=== PATIENT | female | born 1960 | race African-American/Black ===

== ENCOUNTER 2016-11-23 15:26 | Inpatient (IN) ==
--- NOTE | 2016-11-23 15:55 | Emergency Department Note ---
Disposition Clinical Impression: Bilateral lower extremity edema, Anemia, Elevated brain natriuretic peptide ( BNP) level, Tachycardia Metastatic renal cell carcinoma Qualifiers: Laterality: unspecified laterality Qualified Code(s): C64.9 - Malignant neoplasm of unspecified kidney, except renal pelvis Disposition: Admitted As Inpatient Condition: Critical Time of Disposition: 18:57 General Adult HPI - General Chief complaint: ED Extremity Problem,Nontraumatic Stated complaint: DEE, bilateral leg swelling Time Seen by Provider: 11/23/16 15:33 Source: patient Mode of arrival: wheelchair Limitations: no limitations Nursing Notes Reviewed: Yes Vital Signs Reviewed: Yes - History of Present Illness HPI Narrative: Mrs. Gavin, 56-year-old -[place] female, presents from home by POV with chief complaint of bilateral lower extremity swelling. Onset 3 weeks ago and progressing. 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 Finished one round of chemotherapy by [facility]. Last chemotherapy was 3 weeks ago. Next chemotherapy is unknown to patient; early discussion regarding a second round. Patient notes she drinks minimum 1gallon H2O per day. PMH: Hypertension, history of anemia, Renal cell carcinoma. No history of congestive heart failure, CAD, or ACS. Patient was given a prescription for metoprolol. She is not currently on Lasix or any diuretics. PCP: Dr. Corral of the residency clinic. ROS: Positive: Bilateral lower extremity edema. Generalized pain. Negative: Chest pain, palpitations, dyspnea, diaphoresis, nausea, vomiting, abdominal pain, weakness. Pain Scale: 10 - Related Data Home Medications Medication Instructions Recorded Confirmed Alprazolam [Xanax] 2 mg PO TID 11/24/15 11/23/16 Albuterol Sulfate [Proair Hfa] 1 puff IH QID PRN 11/23/16 11/23/16 Guaifenesin [Mucinex] 600 mg PO BID PRN 11/23/16 11/23/16 Loratadine [Claritin] 10 mg PO DAILY 11/23/16 11/23/16 Metoprolol XL (24 HR) Succ [Toprol 25 mg PO DAILY 11/23/16 11/23/16 XL] Oxycodone HCl [Roxicodone 30 MG 30 mg PO Q4-6H PRN 11/23/16 11/23/16 Immed Release] Promethazine Syrup [Phenergan 12.5 - 25 mg PO Q8HR PRN 11/23/16 11/23/16 Syrup] hydroCHLOROthiazide 12.5 mg PO DAILY 11/23/16 11/23/16 [Hydrochlorothiazide] Previous Rx's Medication Instructions Recorded Morphine Sulfate SR (12 HR) [MS 30 mg PO Q8H #90 tablet.er 11/06/16 Contin] Allergies Allergy/AdvReac Type Severity Reaction Status Date / Time hydrocodone AdvReac Nausea Verified 11/23/16 14:11 Hydromorphone [From Dilaudid] AdvReac Nausea Verified 11/23/16 14:11 All systems ED: reviewed and negative except as stated. Past Medical History - Past Medical History Medical history: Reports: cancer, hypertension, renal disease, other Surgical history: Reports: appendectomy, hysterectomy Psychiatric history: Reports: anxiety CAKE MAKER history: Reports: no CAKE MAKER history - Social History Smoking Status: Current every day smoker Smokeless Tobacco Status: No Alcohol use: Reports: none Drug use: Reports: none Physical Exam Vital Signs Reviewed General: Patient is alert, oriented, and in no acute distress. HEENT: No facial asymmetry. Head is normocephalic and atraumatic. PERRLA. Trachea midline. Cardiovascular: Heart regular rate and rhythm without clicks, rubs, gallops. Grade 3/6 systolic murmur at right upper sternal border with radiation to bilateral carotids. No JVD. PMI nondisplaced. Bilateral pitting pedal edema from the distal foot to the mid thigh, 2+ at his most severe. Respiratory: Symmetric chest rise with good respiratory effort. Bilateral breath sounds are clear without wheezing, crackles, or rhonchi. Abdomen: Bowel sounds present normoactive x-4 quadrants. Abdomen is soft, nondistended, and nontender. Neuro: Sensation light touch intact. Psych: Patient's affect is appropriate for situation. - General Limitations: no limitations Course Course Narrative: Mrs. Gavin, 56-year-old -[place] female, presents from home by POV with concerns regarding bilateral lower extremity edema. Patient has a history of renal cell carcinoma with metastasis. Has completed 1 round of chemotherapy and is in discussion with or oncologist regarding a second round. Her edema began 3 weeks ago after her last chemotherapy session and has been progressive. She has no history of CAD/ACS/CHF. I am initially concern regarding possible DVT or PE given patient's malignancy. She does take aspirin every day however is not on any anticoagulants. We will Doppler bilateral lower extremities. With her vital signs, she is currently mildly hypoxic, tachypneic, tachycardic, systolic blood pressure 103. We will place on monitor, large-bore IV, and begin fluid resuscitation. Regarding her pain, she has generalized tenderness; the lightest touch even on her back causes her to wince in pain. Last dose of home dose of home dose metoprolol was yesterday morning Patient's VS unchanged after 1L bolus. Will provide Lasix 40mg bolus. She does feel better on supplemental O2. Discussed the patient the the [employer] for the admitting hospitalist who agrees to accept the patient and has no additional questions at this time. Impression: Bilateral lower extremity edema, anemia, elevated BNP. Vital Signs Temperature 99.2 F 11/23/16 15:28 Pulse Rate 114 11/23/16 15:28 Respiratory Rate 20 11/23/16 15:28 Blood Pressure 103/70 11/23/16 15:28 O2 Sat by Pulse Oximetry 94 11/23/16 15:28 Temperature 99.1 F 11/23/16 19:13 Pulse Rate 106 11/23/16 19:13 Respiratory Rate 16 11/23/16 19:13 Blood Pressure 99/65 11/23/16 19:13 O2 Sat by Pulse Oximetry 90 11/23/16 19:13 Oxygen Delivery Oxygen Delivery Nasal Cannula Medical Decision Making - Medical Records Medical records reviewed: Yes I reviewed the patient's medical records. - Lab Data Lab results reviewed: Yes I reviewed the patient's lab results. Result diagrams: 11/23/16 16:10 11/23/16 16:10 Lab Results 11/23/16 11/23/16 11/23/16 Range/Units 16:10 16:10 16:10 WBC 9.8 (4.3-11.1) K/mcL RBC 4.41 (3.82-4.97) M/mcL Hgb 8.0 L (11.5-15.4) g/dL Hct 28.7 L (35.3-44.9) % MCV 65.1 L (83.0-100.0) fL MCH 18.1 L (28.0-33.3) pg MCHC 27.9 L (31.6-35.5) g/dL RDW 23.9 H (11.5-14.5) % Plt Count 500 H (140-400) K/mcL MPV 8.8 L (9.4-12.4) fL Immature Gran % 1.1 (0-4) % Seg Neutrophils % 75.9 % Lymphocytes % 5.3 % Monocytes % 14.9 % Eosinophils % 2.3 % Basophils % 0.5 % Neutrophils # 7.4 (1.6-8.9) K/mcL Lymphocytes # 0.5 L (0.6-4.6) K/mcL Monocytes # 1.5 H (0.0-1.3) K/mcL Eosinophils # 0.2 (0.0-0.6) K/mcL Basophils # 0.1 (0.0-0.2) K/mcL Nucleated RBCs/100 WBC 0.4 H (0) /100 WBC Platelet Estimate Increased H (Normal) Immature Plt Fraction 2.9 (1.1-6.1) % Hypochromasia Present A (Not Present) Anisocytosis 3+ A (Not Present) Microcytosis Present A (Not Present) Sodium 132 L (136-145) mEq/L Potassium 4.5 (3.5-4.5) mEq/L Chloride 97 L (98-109) mEq/L Carbon Dioxide 26 (19-29) mEq/L BUN 12 (7-20) mg/dL Creatinine 0.81 (0.57-1.11) mg/dL Est GFR ( Amer) > 60 (> 60) Est GFR (Non-Af Amer) > 60 (> 60) BUN/Creatinine Ratio 15 (6-26) Glucose 108 H (70-99) mg/dL Calculated Osmolality 274 L (280-300) Calcium 9.1 (8.6-10.8) mg/dL Total Bilirubin 3.1 H (0.2-1.2) mg/dL AST 29 (5-34) Units/L ALT 9 (0-55) Units/L Alkaline Phosphatase 247 H (38-126) Units/L Troponin I (0-0.03) ng/mL B-Natriuretic Peptide 1022 H (0-100) pg/mL Serum Total Protein 6.7 (6.0-8.3) g/dL Albumin 1.8 L (3.5-5.0) g/dL Globulin 4.9 H (2.4-3.5) g/dL Albumin/Globulin Ratio 0.4 L (1.1-2.2) Blood Type Antibody Screen 11/23/16 11/23/16 Range/Units 16:10 17:44 WBC (4.3-11.1) K/mcL RBC (3.82-4.97) M/mcL Hgb (11.5-15.4) g/dL Hct (35.3-44.9) % MCV (83.0-100.0) fL MCH (28.0-33.3) pg MCHC (31.6-35.5) g/dL RDW (11.5-14.5) % Plt Count (140-400) K/mcL MPV (9.4-12.4) fL Immature Gran % (0-4) % Seg Neutrophils % % Lymphocytes % % Monocytes % % Eosinophils % % Basophils % % Neutrophils # (1.6-8.9) K/mcL Lymphocytes # (0.6-4.6) K/mcL Monocytes # (0.0-1.3) K/mcL Eosinophils # (0.0-0.6) K/mcL Basophils # (0.0-0.2) K/mcL Nucleated RBCs/100 WBC (0) /100 WBC Platelet Estimate (Normal) Immature Plt Fraction (1.1-6.1) % Hypochromasia (Not Present) Anisocytosis (Not Present) Microcytosis (Not Present) Sodium (136-145) mEq/L Potassium (3.5-4.5) mEq/L Chloride (98-109) mEq/L Carbon Dioxide (19-29) mEq/L BUN (7-20) mg/dL Creatinine (0.57-1.11) mg/dL Est GFR ( Amer) (> 60) Est GFR (Non-Af Amer) (> 60) BUN/Creatinine Ratio (6-26) Glucose (70-99) mg/dL Calculated Osmolality (280-300) Calcium (8.6-10.8) mg/dL Total Bilirubin (0.2-1.2) mg/dL AST (5-34) Units/L ALT (0-55) Units/L Alkaline Phosphatase (38-126) Units/L Troponin I 0.01 (0-0.03) ng/mL B-Natriuretic Peptide (0-100) pg/mL Serum Total Protein (6.0-8.3) g/dL Albumin (3.5-5.0) g/dL Globulin (2.4-3.5) g/dL Albumin/Globulin Ratio (1.1-2.2) Blood Type B POSITIVE Antibody Screen NEGATIVE - Radiology Data Radiology results reviewed: Yes I reviewed the patient's radiology results. - EKG Data EKG #1 EKG results narrative: EKG is interpreted by myself without benefit of for cardiology dictation showing a sinus tachycardia at 109 bpm with old inferior changes. Stool is compared to an EKG from 10/25/2016 shows no significant change today compared to previous. Attestation Statement - Attestation Attestation: I personally interviewed and examined this patient and my medical decision- making was reviewed with the ED Resident Physician, Dr. Corona. I agree with the documented findings, disposition and treatment plan as described except to the extent set forth below. Patient is a 56-year-old black female who presents to the emergency department today brought by her sister with concerns for 3 week history of gradually worsening bilateral lower extremity edema and pain. Patient has a history of renal cell carcinoma which was diagnosed earlier this year and resulted in her having surgery at [facility] as the tumor had wrapped around her spine. She is currently being managed by the residency clinic for primary care as well as the [facility] for cancer management. She has completed one round of chemotherapy and they are considering initiating a second round. Patient is currently not undergoing any chemotherapy treatments. Patient denies any fevers or chills, no shortness of breath associated with this lower extremity edema. She denies any prior cardiac history or CHF. Patient states that she has been calling the clinic multiple times and has been prescribed metoprolol as recently as today to start on but has not been prescribed any Lasix or diuretics. Patient is in no acute distress although she has abnormal vital signs on arrival showing a tachycardia to sinus rhythm as well as mild hypotension. Patient denies any chest pain pressure or heaviness no abdominal pain, no nausea vomiting, no back or flank discomfort or urinary symptoms. Patient denies any recent sore throat cough or cold symptoms. She is in no acute distress on my initial assessment with no signs of respiratory distress. On physical exam patient's heart is tachycardic but regular, abdomen is soft nontender nondistended positive bowel sounds she has a well-healed surgical scar overlying the right anterolateral abdomen from prior surgery. Patient's lower extremity exam shows bilateral 3+ pitting edema to the knees but no overlying erythema. Legs are generally tender to palpation. She is neurovascularly intact in both lower extremities. Remainder of exam is unremarkable. At this time based on her vitals were to go ahead and given initial fluid bolus and obtained portal chest x-ray and lab evaluation. I went ahead since this is such a recent change for her and ordered bilateral venous Dopplers to further evaluate this edema and pain. He will that she is at risk for DVT or PE in regards to her cancer history. At this time she is not complaining of any chest pain no shortness of breath no pulmonary or cardiac symptoms. We will closely monitor her hemodynamic status and make adjustments as needed.
[2016-11-23] MEDS ORDERED: 0.9 % Sodium Chloride 1,000 ML IVC ONE (15:56)
[2016-11-23 16:23] LABS: Basophils # 0.1 K/mcL (0.0-0.2); Basophils % 0.5 %; Eosinophils # 0.2 K/mcL (0.0-0.6); Eosinophils % 2.3 %; Hematocrit 28.7 % (35.3-44.9); Immature Granulocytes % 1.1 % (0-4); Immature Platelets 2.9 % (1.1-6.1); Lymphocytes # 0.5 K/mcL (0.6-4.6); Lymphocytes % 5.3 %; Mean Corpuscular HGB Conc 27.9 g/dL (31.6-35.5); Mean Corpuscular Hemoglobin 18.1 pg (28.0-33.3); Mean Corpuscular Volume 65.1 fL (83.0-100.0); Mean Platelet Volume 8.8 fL (9.4-12.4); Monocytes # 1.5 K/mcL (0.0-1.3); Monocytes % 14.9 %; Neutrophils # 7.4 K/mcL (1.6-8.9); Nucleated Red Blood Cells 0.4 /100 WBC (0); Platelet Count 500 K/mcL (140-400); Red Blood Count 4.41 M/mcL (3.82-4.97); Red Cell Distribution Width 23.9 % (11.5-14.5); Segmented Neutrophils % 75.9 %
[2016-11-23 16:35] LABS: Alanine Aminotransferase 9 Units/L (0-55); Albumin 1.8 g/dL (3.5-5.0); Albumin/Globulin Ratio 0.4 (1.1-2.2); Alkaline Phosphatase 247 Units/L (38-126); Aspartate Amino Transferase 29 Units/L (5-34); BUN/Creatinine Ratio 15 (6-26); Bilirubin,Total 3.1 mg/dL (0.2-1.2); Blood Urea Nitrogen 12 mg/dL (7-20); Calcium 9.1 mg/dL (8.6-10.8); Carbon Dioxide 26 mEq/L (19-29); Chloride 97 mEq/L (98-109); Globulin 4.9 g/dL (2.4-3.5); Glucose 108 mg/dL (70-99); Osmolality,Calculated 274 (280-300); Potassium 4.5 mEq/L (3.5-4.5); Sodium 132 mEq/L (136-145); Total Protein 6.7 g/dL (6.0-8.3); eGFR For African Americans > 60 (> 60); eGFR For Non-African Americans > 60 (> 60)
[2016-11-23 16:39] LABS: Anisocytosis 3+ (Not Present); Hypochromasia Present (Not Present); Microcytosis Present (Not Present); Platelet Estimate Increased (Normal)
[2016-11-23] MEDS ORDERED: Furosemide 40 MG/4 ML VIAL IVP ONE (17:21)
[2016-11-23] MEDS ORDERED: Naloxone 0.4 MG/ML INJ IVP PRN ×2 (18:12→18:25)
[2016-11-23] MEDS ORDERED: Acetaminophen 325 MG TABLET PO PRN (18:25)
[2016-11-23] MEDS ORDERED: Ondansetron 4 MG/2 ML VIAL IVP PRN (18:25)
[2016-11-23] MEDS ORDERED: *HR* Morphine Sulfate SR (12 HR) 30 MG TABLET.ER PO SCH (18:30)
--- NOTE | 2016-11-23 18:40 | Internal Med History&Physical ---
<Laneynahiddee deeChivo Duarte - Last Filed: 11/23/16 19:22> Date of Encounter: 11/23/16 Time of Encounter: 18:00 Assessment and Plan (1) Tachycardia Current visit: Yes Status: Acute Assess: Patient presents with acute tachycardia most likely related to SOB and current diagnosis of metastatic renal cell carcinoma. Patient has no history of congestive heart, CAD, or ACS. Troponin is 0.01 on first blood draw. Plan: Trend troponins x2 Continuous cardiac telemetry ordered EV Echocardiogram ordered CT of chest ordered Monitor patient and vital signs (2) Lower extremity edema Current visit: Yes Status: Acute Assess: Ms. Gavin is a 56 year old female presents from the ED with chief complaint of bilateral lower extremity swelling and difficulty breathing. Patient reports this began 3 weeks ago, coinciding with finishing a round of chemotherapy [facility]. Patient reports cough with sputum production has become progressively worse. Plan: Lasix 40 mg given in ED. Patient to receive one more 40 mg IVP dose today at 21: 00, then 40 mg IVP BID starting tomorrow (11/24/16) Monitor I&O Monitor daily weight Qualifiers: Laterality: bilateral Qualified Code(s): R60.0 - Localized edema (3) Generalized pain Current visit: Yes Status: Acute Assess: Patient presents with acute generalized pain related to recurrent renal cell carcinoma with metastasis to spine and brain and current chest congestion resulting in SOB. Plan: Continue patient's oxycodone 30 mg Q8 for moderate pain Continue patient's morphine 30 mg Q8 for severe pain Monitor patient and vital signs Monitor patient for pain Falls precautions/bed rest with bedside commode/[id number] status due to weakness/generalized pain (4) SOB (shortness of breath) Current visit: Yes Status: Acute Assess: Patient presents with acute shortness of breath related to current metastatic cancer and cough with excess sputum production. Plan: Supplemental O2 ordered with titration if SpO2 <92% Continuous SpO2 monitoring Sputum culture ordered Ceftriaxone 1,000 mg IVPB daily ordered for infection coverage D-dimer ordered Lactic acid ordered CT of chest ordered DuoNebs ordered Q4 Monitor patient and vital signs (5) Metastatic renal cell carcinoma Current visit: Yes Status: Chronic Assess: Patient presents with renal cell carcinoma with metastasis to spine and brain. Plan: Continue patient's oxycodone 30 mg Q8 for moderate pain Continue patient's morphine 30 mg Q8 for severe pain Monitor patient and vital signs Monitor patient for pain Falls precautions/bed rest with bedside commode/[id number]-[id number] status due to weakness/generalized pain Qualifiers: Laterality: unspecified laterality Qualified Code(s): C64.9 - Malignant neoplasm of unspecified kidney, except renal pelvis (6) DVT prophylaxis Current visit: Yes Status: Acute Assess: Replacement DVT prophylaxis to inpatient protocol and bedrest status. Plan: Heparain 5,000 units SQ Q8 HR ordered Internal Medicine - H&P: HPI Chief complaint: SOB/Bilateral edema of lower extremities Admitted From: Emergency Dept Plans for Post Hospital Care: Home History of present illness: Ms. Gavin is a 56 year old female presents from the ED with chief complaint of bilateral lower extremity swelling and difficulty breathing. Patient reports this began 3 weeks ago, coinciding with finishing a round of chemotherapy [facility]. Patient reports cough with sputum production has become progressively worse. Patient denies chest pain but is currently tachycardic. Patient has no history of CHF, CAD, or ACS. Ms. Gavin denies chest pain, palpitations, diaphoresis, nausea, vomiting, abdominal pain, generalized weakness, or recent illness. Patient has history of hypertension, renal disease , and renal cell carcinoma with metastasis to spine and brain. Patient also denies any current pain. Patient is high risk due to current immunocompromised status related to recent chemotherapy, risk for infection, and symptomatic tachycardia. Patient is to be placed on continuous cardiac telemetry, supplemental O2 with titration, IV ceftriaxone 1,000 mg daily for infection coverage, fluid restriction diet of 1500 due to lower extremity edema, 40 mg BID Lasix, and trending troponins x2. Blood and sputum cultures ordered. Patient is falls precautions/bed rest with bedside commode/wv-[id number] status due to current weakness/SOB. Patient to be monitored closely. Past Med Surg Social Fam HX - Past Medical History Source: patient Medical history: cancer, hypertension, renal disease, other Psychiatric history: anxiety - Past Surgical History Surgical History: appendectomy, hysterectomy - Social History Smoking Status: Current every day smoker Smokeless Tobacco Status: No Alcohol use: none Drug use: none Occupational status: unemployed Current living situation: Home Activity Level: Independent ambulation Recent Out of Country Travel Within the Last 8 Weeks: No Exposure or Possible Exposure to Illness During Travel: No - Family History Mother Race: Family Member Ethnicity: Non- Living Status: Age at : 77 Hx Family Endocrine Disorder: Yes (DM) Brother Race: Family Member Ethnicity: Non- Living Status: Cause of : Lung cancer Hx Family Cancer: Yes (Lung) Internal Medicine - H&P: Meds Alprazolam [Xanax] 2 mg PO TID 11/24/15 [History] Morphine Sulfate SR (12 HR) [MS Contin] 30 mg PO Q8H #90 tablet.er 11/06/16 [Rx] Albuterol Sulfate [Proair Hfa] 1 puff IH QID PRN 11/23/16 [History] Guaifenesin [Mucinex] 600 mg PO BID PRN 11/23/16 [History] Loratadine [Claritin] 10 mg PO DAILY 11/23/16 [History] Metoprolol XL (24 HR) Succ [Toprol XL] 25 mg PO DAILY 11/23/16 [History] Oxycodone HCl [Roxicodone 30 MG Immed Release] 30 mg PO Q4-6H PRN 11/23/16 [ History] Promethazine Syrup [Phenergan Syrup] 12.5 - 25 mg PO Q8HR PRN 11/23/16 [History] hydroCHLOROthiazide [Hydrochlorothiazide] 12.5 mg PO DAILY 11/23/16 [History] Allergies hydrocodone Adverse Reaction (Verified 11/23/16 14:11) Nausea Hydromorphone [From Dilaudid] Adverse Reaction (Verified 11/23/16 14:11) Nausea All Systems PM: A 10-system review of systems was performed and is negative for pertinent findings except as documented above in the HPI. - Constitutional Constitutional: as per HPI, weakness, other (SOB) - EENT Eyes: no change in vision, no discharge, no pain, no photophobia Ears: no ear discharge, no ear pain, no tinnitus Nose, mouth and throat: no dysphagia, no nasal discharge, no neck pain, no sore throat - Breasts Breasts: as per HPI - Cardiovascular Cardiovascular ROS IM: as per HPI, other (Tachycardia) - Respiratory Respiratory: as per HPI, cough, wheezing, chest congestion, excessive phlegm production - Gastrointestinal Gastrointestinal: no abdominal pain, no diarrhea, no hematemesis, no hematochezia, no melena, no nausea, no vomiting - Genitourinary Genitourinary: no change in urinary stream, no dysuria, no flank pain, no hematuria Menstruation: as per HPI - Musculoskeletal Musculoskeletal ROS IM: no numbness, no tingling - Integumentary Integumentary IM: no rash, no unusual bruising - Neurological Neurological ROS: no confusion, no convulsions, no focal weakness, no numbness, no tingling, no tremor(s) - Psychiatric Psychiatric: as per HPI - Endocrine Endocrine IM: as per HPI - Hematologic/Lymphatic Hematologic/Lymphatic: no easy bruising - Allergic/Immunologic Allergic/Immunologic: as per HPI - Constitutional Vitals: Temp Pulse Resp BP Pulse Ox 99.2 F 114 20 103/70 94 11/23/16 15:28 11/23/16 15:28 11/23/16 15:28 11/23/16 15:28 11/23/16 15:28 General appearance: Present: cooperative, mild distress, A&O X 3, pleasant, answers questions appropriately - Head Head exam: Present: atraumatic, normocephalic - Eye Eye exam: Present: PERRL, conjuntiva pink, sclera anicteric Pupils: Present: PERRL - ENT ENT exam: Present: normal exam, normal external ear exam - Neck Neck exam general surgery: Present: supple, trachea midline. Absent: lymphadenopathy - Respiratory Respiratory exam: Present: decreased breath sounds, rhonchi, wheezes. Absent: accessory muscle use, rales - Cardiovascular Cardiovascular exam: Present: tachycardia - GI/Abdominal GI/Abdominal exam: Present: normal bowel sounds, soft, no peritoneal signs. Absent: distended, tenderness - Rectal Rectal exam: Present: deferred - Additional comments: exam deferred. - Extremities Exam Extremities exam: Present: pedal edema, warm, radial pulses palpable and symetrical. Absent: calf tenderness, cyanotic - Back Exam Back exam: Present: normal inspection - Neurological Exam Neurological exam: Present: CN II-XII intact, oriented X3, no focal deficits. Absent: pronater drift, facial droop, speech deficit - Psychiatric Psychiatric exam: Present: normal affect, normal mood - Skin Skin exam: Present: dry, intact Internal Med - H&P Results - Labs CBC & Chem 7: 11/23/16 16:10 11/23/16 16:10 - EKG Data EKG shows normal: sinus rhythm Rate: tachycardia - EKG Data Prior EKG available for review: yes EKG comments: 11/23/16 18:59 EKG dated 10/25/16 shows sinus rhythm with inferior myocardial infarction. EKG dated 11/23/16 shows sinus tachycardia with short SC interval, possible inferior myocardial infarction [30 ms Q wave in II/aVF] of indeterminate age. - Diagnostic Studies Chest x-ray Additional comments: Impressions Chest X-Ray 11/23/16 16:03 IMPRESSION: Findings are consistent with progression of metastatic disease. Diffuse, bilateral interstitial opacities may reflect interstitial edema. D/ / 11/23/2016 17:12:19 Red Solis MD / devi Interpreting Provider: Red Solis MD <Sujata King - Last Filed: 11/23/16 20:17> Date of Encounter: 11/23/16 Internal Medicine - H&P: HPI History of present illness: Ms. Gavin is a 56 year old female All Systems PM: A 10-system review of systems was performed and is negative for pertinent findings except as documented above in the HPI. - Constitutional Vitals: Temp Pulse Resp BP Pulse Ox 99.1 F 106 16 99/65 90 11/23/16 19:13 11/23/16 19:13 11/23/16 19:13 11/23/16 19:13 11/23/16 19:13 Internal Med - H&P Results - Labs CBC & Chem 7: 11/23/16 16:10 11/23/16 16:10 - Attending Attestation I examined and reviewed laboratory, imaging and all diagnostic data. My medical decision-making was reviewed with Chivo Meza - CHARLIE. I agree with the documented findings, disposition and treatment plan as described above. History and exam by me shows: . productive cough, SOB and LE swelling in a patient with metastatic renal cell carcinoma with mets to lungs and on chemotherapy with Nivolumab. Very thin patient with icteric sclera, decreased breath sounds bibasal, crackles in lower lung cain, 2+ LE edema, and on 3L NC (not on oxygen at home). CXR reviewed by me, progression of metastatic cancer and interstitial edema. alb 1.8. WBC 9.8. a/p 1. acute respiratory failure secondary to progression of metastatic disease +/- PNA in an immunocompromised pt +/- acute heart failure. IV lasix. duonebs. IV ceftriaxone. cultures taken. fluid restriction. strict I/O. check echo and CT chest. consider palliative consultation. 2. elevated LFTs. CTAP in October 2016 reviewed, showed ascites. monitor LFTs. Us abdomen ordered.
[2016-11-23] MEDS ORDERED: Furosemide 40 MG/4 ML VIAL IVP SCH (18:45)
[2016-11-23] MEDS ORDERED: *HR* Morphine Sulfate SR (12 HR) 30 MG TABLET.ER PO STA (19:21)
[2016-11-23] MEDS ORDERED: Ipratropium/Albuterol Neb 3 ML IH PRN (20:18)
[2016-11-23] MEDS: ALPRAZolam 1 MG TABLET PO SCH (20:54)
[2016-11-23] MEDS: Furosemide 40 MG/4 ML VIAL IVP SCH (20:54)
[2016-11-23] MEDS: *HR* Heparin 5,000 UNIT/ML VIAL SQ SCH (20:56)
[2016-11-24 02:57] LABS: Basophils % 0.4 %; Immature Granulocytes % 0.9 % (0-4); Monocytes % 14.7 %
[2016-11-24 02:58] LABS: Eosinophils # 0.2 K/mcL (0.0-0.6); Eosinophils % 2.4 %; Hematocrit 27.3 % (35.3-44.9); Hemoglobin 7.5 g/dL (11.5-15.4); Lymphocytes # 0.7 K/mcL (0.6-4.6); Lymphocytes % 6.5 %; Mean Corpuscular HGB Conc 27.5 g/dL (31.6-35.5); Mean Corpuscular Hemoglobin 18.1 pg (28.0-33.3); Mean Corpuscular Volume 65.9 fL (83.0-100.0); Mean Platelet Volume 9.3 fL (9.4-12.4); Monocytes # 1.5 K/mcL (0.0-1.3); Neutrophils # 7.5 K/mcL (1.6-8.9); Nucleated Red Blood Cells 0.3 /100 WBC (0); Platelet Count 405 K/mcL (140-400); Red Blood Count 4.14 M/mcL (3.82-4.97); Red Cell Distribution Width 23.9 % (11.5-14.5); Segmented Neutrophils % 75.1 %
[2016-11-24 03:06] LABS: INR 1.6; Prothrombin Time 17.6 Seconds (9.4-12.1)
[2016-11-24 03:09] LABS: Activated Partial Thrombo Time 27.4 Seconds (26.0-36.0)
[2016-11-24 03:13] LABS: Alanine Aminotransferase 6 Units/L (0-55); Albumin/Globulin Ratio 0.3 (1.1-2.2); Alkaline Phosphatase 212 Units/L (38-126); Aspartate Amino Transferase 18 Units/L (5-34); BUN/Creatinine Ratio 14 (6-26); Bilirubin,Direct 2.3 mg/dL (0.0-0.5); Bilirubin,Indirect 0.6 mg/dL (0.0-1.2); Bilirubin,Total 2.9 mg/dL (0.2-1.2); Blood Urea Nitrogen 12 mg/dL (7-20); Calcium 8.5 mg/dL (8.6-10.8); Carbon Dioxide 27 mEq/L (19-29); Chloride 98 mEq/L (98-109); Chol/HDL Ratio 11.7 (0-4.9); Cholesterol 105 mg/dL (< 200); Globulin 4.3 g/dL (2.4-3.5); Glucose 133 mg/dL (70-99); HDL Cholesterol 9 mg/dL (40-59); LDL Cholesterol,Calculated 74 mg/dL (0-99); Magnesium 1.3 mg/dL (1.6-2.6); Osmolality,Calculated 280 (280-300); Phosphorous 3.9 mg/dL (2.3-4.7); Potassium 3.9 mEq/L (3.5-4.5); Total Protein 5.8 g/dL (6.0-8.3); Triglycerides 111 mg/dL (< 150); eGFR For African Americans > 60 (> 60); eGFR For Non-African Americans > 60 (> 60)
[2016-11-24 03:18] LABS: Albumin 1.5 g/dL (3.5-5.0); Sodium 134 mEq/L (136-145)
[2016-11-24 03:25] LABS: Anisocytosis 2+ (Not Present); Hypochromasia Present (Not Present); Microcytosis Present (Not Present); Poikilocytosis 1+ (Not Present); Target Cells 1+ (Not Present)
[2016-11-24] MEDS: *HR* Heparin 5,000 UNIT/ML VIAL SQ SCH ×3 (05:37→23:34)
[2016-11-24] MEDS: *HR* Morphine Sulfate SR (12 HR) 30 MG TABLET.ER PO SCH ×2 (05:37→07:24)
[2016-11-24] MEDS: Pantoprazole 40 MG VIAL IVP SCH (05:37)
[2016-11-24] MEDS ORDERED: Azithromycin 500 MG in D5% in Water 250 ML IVPB SCH (08:00)
[2016-11-24] MEDS: ALPRAZolam 1 MG TABLET PO SCH (09:43)
[2016-11-24] MEDS ORDERED: Furosemide 40 MG/4 ML VIAL IVP SCH (09:44)
[2016-11-24] MEDS ORDERED: *HR* Morphine Sulfate SR (12 HR) 30 MG TABLET.ER PO PRN (09:45)
[2016-11-24] MEDS ORDERED: ALPRAZolam 1 MG TABLET PO PRN (09:46)
[2016-11-24] MEDS: Furosemide 40 MG/4 ML VIAL IVP SCH ×3 (09:56→17:25)
[2016-11-24] MEDS: Loratadine 10 MG TABLET PO SCH (09:57)
--- NOTE | 2016-11-24 13:15 | Venous Imaging Report ---
LE Venous Duplex Patient Name:Elen Gavin Order Number:[id number] Procedure Date:11/23/2016 Date:2Age:56 yrs Gender:Female Location:[facility] ED Room #: ER27 Temperature Regulator:Sharon White RDCS Referring MD:Jia Smith DO analytical lab analyst:None Reading MD:Isaak Coates MD Primary Indications:Edema Secondary Indications: Risk Factors Yes/No Hx of Chemotherapy Yes Impressions: Normal bilateral lower extremity deep and superficial venous exam. Recommendations: Preliminary given to Dr Smith in ED. Findings Venous Duplex Results: Right: Venous imaging of the lower extremity reveals full patency and normal vessel compressibility of the right distal iliac, right common femoral, right superficial femoral, right popliteal, right posterior tibial, right peroneal, right great saphenous and right lesser saphenous. Doppler signals in the evaluated veins were normal. Left: Venous imaging of the lower extremity reveals full patency and normal vessel compressibility of the left distal iliac, left common femoral, left superficial femoral, left popliteal, left posterior tibial, left peroneal, left great saphenous and left lesser saphenous. Doppler signals in the evaluated veins were normal. Prior Study: No prior study available for comparison. Lower Extremity Venous Duplex Side Vein Compress Spontaneous Flow Augment Diameter (cm) Depth (cm) Right Distal Iliac Normal Yes Phasic Yes Right Common Femoral Normal Yes Phasic Yes Right Superficial Femoral Normal Yes Phasic Yes Right Popliteal Normal Yes Phasic Yes Right Posterior Tibial Normal Yes Phasic Yes Right Peroneal Normal Yes Phasic Yes Right Great Saphenous Normal Yes Phasic Yes Right Lesser Saphenous Normal Yes Phasic Yes Left Distal Iliac Normal Yes Phasic Yes Left Common Femoral Normal Yes Phasic Yes Left Superficial Femoral Normal Yes Phasic Yes Left Popliteal Normal Yes Phasic Yes Left Posterior Tibial Normal Yes Phasic Yes Left Peroneal Normal Yes Phasic Yes Left Great Saphenous Normal Yes Phasic Yes Left Lesser Saphenous Normal Yes Phasic Yes Updated by Isaak Coates MD on 11/24/2016 12:59:49 PM electronically signed on 11/24/2016 1:10:08 PM with status of Final
--- NOTE | 2016-11-24 13:39 | Internal Med Progress Note ---
Date of Encounter: 11/24/16 Time of Encounter: 09:00 - Assessment and plan (1) Acute respiratory failure with hypoxia Current Visit: Yes Status: Acute Assessment and plan: Likely from pulmonary edema and lung metastasis from renal cell carcinoma. Continue O2 supplementation. Patient was started on IV antibiotics for possible underlying pneumonia. CT scan of the chest does not show any definitive pneumonia. Patient does have interstitial edema. We will discontinue IV antibiotics. Treat underlying conditions. Moderate risk for complications. (2) Anemia Current Visit: Yes Status: Acute Assessment and plan: Acute on chronic anemia with hemoglobin of 7.5 today. Likely related to cancer , chemotherapy and chronic disease. Will check iron, folic acid and B12 levels. Qualifiers: Anemia type: other cause Other causes of anemia: chronic disease, other Qualified Code(s): D63.8 - Anemia in other chronic diseases classified elsewhere (3) Bilateral lower extremity edema Current Visit: Yes Status: Acute Assessment and plan: Started on treatment for this with Lasix. Patient may have underlying heart failure. We will follow results of 2-D echocardiogram. 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 Qualifiers: Laterality: unspecified laterality Qualified Code(s): C64.9 - Malignant neoplasm of unspecified kidney, except renal pelvis (6) Tachycardia Current Visit: Yes Status: Acute Assessment and plan: Check thyroid profile. Patient is in sinus tachycardia. This could be due to anemia and hypoxia. No signs of sepsis. - Constitutional Vitals: Temp Pulse Resp BP Pulse Ox 98.6 F 110 14 102/65 100 11/24/16 11:16 11/24/16 11:16 11/24/16 11:16 11/24/16 11:16 11/24/16 11:16 General appearance: Present: cooperative, mild distress, A&O X 3, pleasant, answers questions appropriately Internal Medicine: Result - Labs CBC & Chem 7: 11/24/16 02:07 11/24/16 02:07 Labs: Short CBC 11/24/16 Range/Units 02:07 WBC 10.0 (4.3-11.1) K/mcL Hgb 7.5 L (11.5-15.4) g/dL Hct 27.3 L (35.3-44.9) % Plt Count 405 H (140-400) K/mcL Neutrophils # 7.5 (1.6-8.9) K/mcL BMP 11/24/16 02:07 Sodium 134 L Potassium 3.9 Chloride 98 Carbon Dioxide 27 BUN 12 Creatinine 0.83 Glucose 133 H Calcium 8.5 L Cardiac Enzymes 11/24/16 Range/Units 02:07 Troponin I 0.02 (0-0.03) ng/mL Liver Function 11/24/16 Range/Units 02:07 Total Bilirubin 2.9 H (0.2-1.2) mg/dL Direct Bilirubin 2.3 H (0.0-0.5) mg/dL AST 18 (5-34) Units/L ALT 6 (0-55) Units/L Alkaline Phosphatase 212 H (38-126) Units/L Albumin 1.5 L (3.5-5.0) g/dL - ABG Interpretation ABG results: PT/INR, D-dimer PT 17.6 Seconds (9.4-12.1) H 11/24/16 02:07 D-Dimer 5839 ng/mLFEU (0-500) H 11/23/16 19:41 - Impressions Impressions Abdomen Ultrasound 11/24/16 08:45 IMPRESSION: Mild diffuse wall thickening the gallbladder and small amount of pericholecystic fluid. No gallstones. Gallbladder wall thickening is nonspecific and can be seen with acute and/or chronic inflammation, hepatitis, and heart failure D/ / Shannan Dawson Cha, MD / Shannan Dawson Cha, MD Interpreting Provider: Shannan Dawson Cha, MD Consult Discharge Plan - Plan Referrals: Harlan Epperson DO [Primary Care Provider] - - Attending Attestation This document has been at least partially created by [facility] recognition technology by Dr. Cassidy. Errors in grammar, wording or other phrases may exist. If errors are found after the documentation is signed, they will be addressed individually in the addendum section of this document when appropriate.
[2016-11-25 04:49] LABS: Basophils % 0.5 %; Hemoglobin 7.4 g/dL (11.5-15.4); Nucleated Red Blood Cells 0.4 /100 WBC (0); Red Cell Distribution Width 23.9 % (11.5-14.5)
[2016-11-25 04:53] LABS: Basophils # 0.1 K/mcL (0.0-0.2); Eosinophils # 0.2 K/mcL (0.0-0.6); Eosinophils % 2.1 %; Hematocrit 27.4 % (35.3-44.9); Immature Granulocytes % 1.2 % (0-4); Lymphocytes # 0.8 K/mcL (0.6-4.6); Lymphocytes % 6.9 %; Mean Corpuscular Hemoglobin 17.5 pg (28.0-33.3); Mean Corpuscular Volume 64.8 fL (83.0-100.0); Mean Platelet Volume 9.1 fL (9.4-12.4); Monocytes # 1.5 K/mcL (0.0-1.3); Monocytes % 13.5 %; Neutrophils # 8.6 K/mcL (1.6-8.9); Platelet Count 407 K/mcL (140-400); Red Blood Count 4.23 M/mcL (3.82-4.97); Segmented Neutrophils % 75.8 %
[2016-11-25 05:06] LABS: % Iron Saturation 10 % (15-50); BUN/Creatinine Ratio 16 (6-26); Blood Urea Nitrogen 12 mg/dL (7-20); Calcium 8.4 mg/dL (8.6-10.8); Carbon Dioxide 25 mEq/L (19-29); Chloride 98 mEq/L (98-109); Glucose 106 mg/dL (70-99); Iron 12 mcg/dL (50-170); Osmolality,Calculated 278 (280-300); Potassium 3.8 mEq/L (3.5-4.5); Sodium 134 mEq/L (136-145); Transferrin 84 mg/dL (180-382); eGFR For African Americans > 60 (> 60); eGFR For Non-African Americans > 60 (> 60)
[2016-11-25] MEDS: *HR* Heparin 5,000 UNIT/ML VIAL SQ SCH ×3 (05:23→23:05)
[2016-11-25] MEDS: Pantoprazole 40 MG VIAL IVP SCH (05:23)
[2016-11-25 05:26] LABS: Ferritin 384 ng/ml (5-204)
[2016-11-25 05:32] LABS: Hypochromasia Present (Not Present)
[2016-11-25 05:33] LABS: Anisocytosis 2+ (Not Present); Polychromasia 2+ (Not Present)
[2016-11-25] MEDS: Sodium Ferric Gluconat/Sucrose 250 MG in 0.9 % Sodium Chloride 100 ML IVPB SCH (08:29)
[2016-11-25] MEDS: Folic Acid 1 MG TABLET PO SCH (09:15)
[2016-11-25] MEDS: Loratadine 10 MG TABLET PO SCH (09:15)
[2016-11-25] MEDS ORDERED: 0.9 % Sodium Chloride 250 ML ONE (10:18)
--- NOTE | 2016-11-25 11:04 | Internal Med Progress Note ---
Date of Encounter: 11/25/16 Time of Encounter: 08:20 - Assessment and plan (1) Acute respiratory failure with hypoxia Current Visit: Yes Status: Acute Assessment and plan: Continue O2 supplementation. Multifactorial. From lung metastasis and pulmonary edema. wean FiO2 as tolerated. Patient will most likely need oxygen at home. High risk for complications due to tachypnea and hypoxia (2) Anemia Current Visit: Yes Status: Acute Assessment and plan: Hemoglobin 7.4 today. We will transfuse 1 unit packed red blood cells as patient is having tachypnea and tachycardia. Qualifiers: Anemia type: other cause Other causes of anemia: chronic disease, other Qualified Code(s): D63.8 - Anemia in other chronic diseases classified elsewhere (3) Bilateral lower extremity edema Current Visit: Yes Status: Acute Assessment and plan: Treating with IV Lasix. 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 Monitor mental status and blood pressure (5) Metastatic renal cell carcinoma Current Visit: Yes Status: Chronic Assessment and plan: Discussed with oncology. They will evaluate patient here. CT chest shows increasing size and number of metastatic lesions. Qualifiers: Laterality: unspecified laterality Qualified Code(s): C64.9 - Malignant neoplasm of unspecified kidney, except renal pelvis (6) Tachycardia Current Visit: Yes Status: Acute Assessment and plan: Likely from anemia and hypoxia. Will transfuse 1 unit packed red blood cells. Continue monitoring with telemetry. - Subjective Interval history: Patient is sitting up in bed and eating. She is tachypneic but denies any distress. No chest pain. Feels tired but wants to go home. No fever chills overnight. No hemoptysis. No melena or hematochezia - Constitutional Vitals: Temp Pulse Resp BP Pulse Ox 98.5 F 106 36 92/58 93 11/25/16 10:50 11/25/16 10:50 11/25/16 10:50 11/25/16 10:50 11/25/16 10:50 General appearance: Present: cooperative, mild distress, A&O X 3, pleasant, answers questions appropriately - Neck Neck exam general surgery: Present: supple, trachea midline. Absent: lymphadenopathy - Respiratory Respiratory exam: Present: prolonged expiratory phase, rhonchi, tachypnea. Absent: accessory muscle use, rales, wheezes - Cardiovascular Cardiovascular exam: Present: RRR, +S1, +S2, tachycardia. Absent: diastolic murmur, gallop, rubs, systolic murmur - Extremities Exam Extremities exam: Present: pedal edema, warm, radial pulses palpable and symetrical. Absent: calf tenderness, cyanotic - Neurological Exam Neurological exam: Present: alert, CN II-XII intact, oriented X3, no focal deficits. Absent: facial droop, speech deficit Internal Medicine: Result - Labs CBC & Chem 7: 11/25/16 04:16 11/25/16 04:16 Labs: Short CBC 11/25/16 Range/Units 04:16 WBC 11.3 H (4.3-11.1) K/mcL Hgb 7.4 L (11.5-15.4) g/dL Hct 27.4 L (35.3-44.9) % Plt Count 407 H (140-400) K/mcL Neutrophils # 8.6 (1.6-8.9) K/mcL BMP 11/25/16 04:16 Sodium 134 L Potassium 3.8 Chloride 98 Carbon Dioxide 25 BUN 12 Creatinine 0.76 Glucose 106 H Calcium 8.4 L - ABG Interpretation ABG results: PT/INR, D-dimer PT 17.6 Seconds (9.4-12.1) H 11/24/16 02:07 D-Dimer 5839 ng/mLFEU (0-500) H 11/23/16 19:41 - Impressions Impressions Head CT 11/25/16 08:12 IMPRESSION: 1. Hypoattenuation is seen within the left frontal lobe, which may represent edema surrounding enhancing lesion noted on the prior MRI. 2. There is no evidence of mass effect or midline shift. 3. No acute intracranial abnormality. 4. Bilateral maxillary sinusitis. D/ / Tacos Rowley MD / Tacos Rowley MD Interpreting Provider: Tacos Rowley MD Consult Discharge Plan - Plan Referrals: Harlan Epperson, [Primary Care Provider] - (Please make sure to call your family physician for hospital dfollow up) - Attending Attestation This document has been at least partially created by [employer] recognition technology by Dr. Cassidy. Errors in grammar, wording or other phrases may exist. If errors are found after the documentation is signed, they will be addressed individually in the addendum section of this document when appropriate.
[2016-11-25] MEDS: Furosemide 40 MG/4 ML VIAL IVP SCH ×2 (13:50→16:34)
--- NOTE | 2016-11-25 14:23 | Palliative - Consult Note ---
Date of Encounter: 11/25/16 Time of Encounter: 14:00 - Assessment and Plan (1) Generalized pain Current Visit: Yes Status: Acute Assessment and plan: Patient is on pain meds currently. She states that they do seem to help, however she really does not want to talk very much to really ascertain how well they are working. As she is not answering questions very well. My recommendation is to continue current regimen and will follow up again tomorrow. (2) SOB (shortness of breath) Current Visit: Yes Status: Acute Assessment and plan: She states this is a little bit better. Plan per hospitalist team (3) Cancer associated pain Current Visit: Yes Status: Chronic Assessment and plan: Patient reluctantly admits that some of the medications do seem to be helping at least to some degree. She will not engage actively in conversation and is quite dismissive. But she does seem to indicate that the medications have been helping at least to a degree. We will continue to follow. (4) Goals of care, counseling/discussion Current Visit: Yes Status: Acute Assessment and plan: The patient does not wish to engage in very much conversation, indicates she wishes to be a full code at this time does not want to agent conversation about what that actually incur entails. Therefore she will remain a full code. Does state that she wishes to get as much therapy as she possibly can from the cancer center and has no desire to curtail it. Does not wish to discuss this any further than that at this time. We will follow-up tomorrow. Palliative-CN HPI - Data of Consult Patient: new to practice Requesting Physician: Memo Cassidy MD Primary Care Provider: Harlan Epperson, DO - Consult Narrative Palliative Care/Comfort Measures: Palliative care Reason for consult: Goals of care, CODE STATUS History of present illness: Ms. Gavin is a 56 year old female The patient with a history of metastatic renal cell carcinoma presents with increasing shortness of breath the last 3 weeks coinciding with finishing Romo chemotherapy. Patient denied any chest pain palpitations Ean is nausea vomiting or abdominal pain on admission. She does complain about back pain which she describes as being very deep pain but will not describe it any further than that and very "bad pain" cannot give a number to it and it does not seem to radiate. It does seem to be worse with movement and with taking a deep breath. The patient does complain about being particularly tired. He denies any nausea or vomiting at this time states her bowels are moving, and makes it very clear that she does not really want to talk much today. CC: Memo Cassidy MD Shortness of breath Past Med Surg Social Fam HX - Past Medical History Medical history: cancer, hypertension, renal disease, other Psychiatric history: anxiety - Past Surgical History Surgical History: appendectomy, hysterectomy - Social History Smoking Status: Current every day smoker Smokeless Tobacco Status: No Alcohol use: none Drug use: none - Family History Mother Race: Family Member Ethnicity: Non- Living Status: Age at : 77 Hx Family Endocrine Disorder: Yes (DM) Brother Race: Family Member Ethnicity: Non- Living Status: Cause of : Lung cancer Hx Family Cancer: Yes (Lung) Medications and Allergies Alprazolam [Xanax] 2 mg PO TID 11/24/15 [History] Morphine Sulfate SR (12 HR) [MS Contin] 30 mg PO Q8H #90 tablet.er 11/06/16 [Rx] Albuterol Sulfate [Proair Hfa] 1 puff IH QID PRN 11/23/16 [History] Guaifenesin [Mucinex] 600 mg PO BID PRN 11/23/16 [History] Loratadine [Claritin] 10 mg PO DAILY 11/23/16 [History] Metoprolol XL (24 HR) Succ [Toprol XL] 25 mg PO DAILY 11/23/16 [History] Oxycodone HCl [Roxicodone 30 MG Immed Release] 30 mg PO Q4-6H PRN 11/23/16 [ History] Promethazine Syrup [Phenergan Syrup] 12.5 - 25 mg PO Q8HR PRN 11/23/16 [History] hydroCHLOROthiazide [Hydrochlorothiazide] 12.5 mg PO DAILY 11/23/16 [History] Allergies hydrocodone Adverse Reaction (Verified 11/23/16 14:11) Nausea Hydromorphone [From Dilaudid] Adverse Reaction (Verified 11/23/16 14:11) Nausea - Constitutional Constitutional ROS PAL: lethargy - EENT Eyes: no discharge, no pain Ears: no ear discharge, no ear pain Ears, nose, mouth, throat: no dysphagia, no mouth pain - Cardiovascular Cardiovascular ROS: no chest pain, no chest pain at rest, no palpitations - Respiratory Respiratory: cough, pain on inspiration, chest congestion - Gastrointestinal Gastrointestinal: no constipation, no cramping, no diarrhea, no nausea, no vomiting - Genitourinary Palliative ROS female: no urinary frequency, no urinary hesitancy - Musculoskeletal Musculoskeletal ROS IM: back pain - Integumentary ROS Integumentary: no skin pain, no skin ulcer - Neurological Neurological ROS: no dizziness, no focal weakness, no lack of coordination - Psychiatric Psychiatric general PM: irritability, no homicidal ideation, no suicidal ideation - Endocrine Endocrine IM: as per HPI Palliative Care-Exam - Constitutional Vitals: Temp Pulse Resp BP Pulse Ox 97.6 F 103 32 94/58 97 11/25/16 13:44 11/25/16 13:44 11/25/16 13:44 11/25/16 13:44 11/25/16 13:44 General appearance: Present: mild distress (Due to back pain) - Head Head Exam: Present: atraumatic, normal inspection - Eye Eye exam: Present: normal appearance - ENT ENT exam: Present: mucous membranes moist - Neck Neck exam: Present: normal inspection - Respiratory Respiratory exam: Present: decreased breath sounds, rhonchi - Cardiovascular Cardiovascular exam: Present: RRR, tachycardia - GI/Abdominal Exam GI/Abdominal exam: Present: normal bowel sounds, soft. Absent: tenderness - Extremities Exam Extremities exam: Present: pedal edema. Absent: normal inspection - Neurological Exam Neurological exam: Present: alert (Awakens easily but either seems to drift off or just does not want to talk.) - Psychiatric Psychiatric exam: Present: agitated (Makes it clear she does not really want to talk, she will answer questions but to reluctantly.). Absent: anxious - Skin Skin exam: Present: dry, warm Internal Medicine - CN: Reslt - Labs CBC & Chem 7: 11/25/16 04:16 11/25/16 04:16 Labs: Short CBC 11/25/16 Range/Units 04:16 WBC 11.3 H (4.3-11.1) K/mcL Hgb 7.4 L (11.5-15.4) g/dL Hct 27.4 L (35.3-44.9) % Plt Count 407 H (140-400) K/mcL Neutrophils # 8.6 (1.6-8.9) K/mcL BMP 11/25/16 04:16 Sodium 134 L Potassium 3.8 Chloride 98 Carbon Dioxide 25 BUN 12 Creatinine 0.76 Glucose 106 H Calcium 8.4 L - ABG Interpretation ABG results: PT/INR, D-dimer PT 17.6 Seconds (9.4-12.1) H 11/24/16 02:07 D-Dimer 5839 ng/mLFEU (0-500) H 11/23/16 19:41 - Impressions Impressions Head CT 11/25/16 08:12 IMPRESSION: 1. Hypoattenuation is seen within the left frontal lobe, which may represent edema surrounding enhancing lesion noted on the prior MRI. 2. There is no evidence of mass effect or midline shift. 3. No acute intracranial abnormality. 4. Bilateral maxillary sinusitis. D/ / Tacos Rowley MD / Tacos Rowley MD Interpreting Provider: Tacos Rowley MD Consult Discharge Plan - Plan Referrals: Harlan Epperson, [Primary Care Provider] - (Please make sure to call your family physician for hospital dfollow up) Palliative Quality Palliative Quality: Screen for Code Status: Yes, Screen for Goals of Care: Yes, Screen for Pain: Yes, If Pain Regimen Started, Initiate Bowel Regimen: Yes, Screen for Nausea/Vomitting: Yes Code Status: 11/23/16 18:12 Resuscitation Status: Active [RES] Routine Comment: Resuscitation Status: Full Code
[2016-11-25 16:06] LABS: ABG Base Excess 5.4 mEq/L (-2.0 to 3.0); ABG HCO3 28.4 mEQ/L (21-27); ABG Oxygen Saturation 95 % (95-98); ABG PCO2 34 mmHg (35-45); ABG PH 7.53 pH Units (7.32-7.45); ABG PO2 65 mmHg (85-104); ABG TCO2 29.4 mEq/L (20-26)
[2016-11-25 16:09] LABS: Blood Gas FiO2 34 %
[2016-11-25] MEDS: *HR* OxyCODONE Immed Rel 15 MG TABLET PO PRN (17:33)
[2016-11-25 21:02] LABS: Bilirubin,Urine Moderate (Negative); Blood,Urine Negative (Negative); Clarity,Urine Cloudy (Clear); Color,Urine Orange (Yellow); Glucose,Urine (UA) Normal (Normal); Ketones,Urine Trace mg/dL (Negative); Leukocyte Esterase,Urine Small (Negative); Nitrite,Urine Positive (Negative); Protein,Urine 30 mg/dL (Neg-Trace); Specific Gravity,Urine 1.024 (1.010-1.025)
[2016-11-25 21:04] LABS: Bacteria,Urine None Seen per hpf (None-Few); Hyaline Casts,Urine None Seen per lpf (None-Few); RBC,Urine 0-3 per hpf (0-3); Squamous Epithelial Cell,Urine Many per lpf (None-Few); WBC,Urine 0-3 per hpf (0-3)
[2016-11-26 04:25] LABS: Red Cell Distribution Width 25.2 % (11.5-14.5)
[2016-11-26 04:27] LABS: Basophils # 0.1 K/mcL (0.0-0.2); Basophils % 0.5 %; Eosinophils # 0.2 K/mcL (0.0-0.6); Eosinophils % 1.7 %; Hematocrit 29.2 % (35.3-44.9); Immature Granulocytes % 1.1 % (0-4); Lymphocytes # 0.7 K/mcL (0.6-4.6); Lymphocytes % 5.5 %; Mean Corpuscular HGB Conc 27.4 g/dL (31.6-35.5); Mean Corpuscular Hemoglobin 18.2 pg (28.0-33.3); Mean Corpuscular Volume 66.5 fL (83.0-100.0); Monocytes # 1.6 K/mcL (0.0-1.3); Neutrophils # 9.6 K/mcL (1.6-8.9); Nucleated Red Blood Cells 0.7 /100 WBC (0); Platelet Count 387 K/mcL (140-400); Red Blood Count 4.39 M/mcL (3.82-4.97); Segmented Neutrophils % 78.2 %
[2016-11-26 04:42] LABS: BUN/Creatinine Ratio 15 (6-26); Blood Urea Nitrogen 10 mg/dL (7-20); Calcium 8.6 mg/dL (8.6-10.8); Carbon Dioxide 25 mEq/L (19-29); Chloride 100 mEq/L (98-109); Glucose 98 mg/dL (70-99); Osmolality,Calculated 277 (280-300); Potassium 3.8 mEq/L (3.5-4.5); Sodium 134 mEq/L (136-145); eGFR For African Americans > 60 (> 60); eGFR For Non-African Americans > 60 (> 60)
[2016-11-26 04:49] LABS: Hypochromasia Present (Not Present); Platelet Estimate Normal (Normal)
[2016-11-26 04:50] LABS: Anisocytosis 2+ (Not Present); Poikilocytosis 1+ (Not Present)
[2016-11-26 04:51] LABS: Polychromasia 1+ (Not Present); Target Cells 1+ (Not Present)
[2016-11-26] MEDS: Pantoprazole 40 MG VIAL IVP SCH (05:28)
[2016-11-26] MEDS: *HR* Heparin 5,000 UNIT/ML VIAL SQ SCH (05:28)
--- NOTE | 2016-11-26 07:00 | Electrocardiograph Report ---
[address] [place] [address] Test Date: 2016-11-23 Pat Name: Elen Gavin Department: 102 Room: 2A24 Gender: F [employer] Teacher: Victor Hugo : 1960 Requested By: Justin Corona Order Number: [id number] Reading MD: Adrien Estevez MD Measurements Intervals [place] Rate: 109 P: -9 IA: 106 QRS: 6 QRSD: 93 T: -67 QT: 311 QTc: 375 Interpretive Statements SINUS TACHYCARDIA WITH SHORT IA INTERVAL INFERIOR MYOCARDIAL INFARCTION, OF INDETERMINATE AGE Electronically Signed On 11-26-2016 6:59:02 EDT by Adrien Estevez MD
--- NOTE | 2016-11-26 07:48 | Palliative Progress Note ---
Date of Encounter: 11/26/16 Time of Encounter: 07:20 - Assessment and plan (1) Generalized pain Current Visit: Yes Status: Acute Assessment and plan: The patient has not been getting her pain medications a consistent basis due to her blood pressure being low. Have noted that her extended release morphine is written as when necessary. I would recommend a every 12 hour schedule and can be held for sedation or low blood pressure. Will discuss further with hospitalist team will go ahead and write the orders and then discuss.. (2) SOB (shortness of breath) Current Visit: Yes Status: Acute Assessment and plan: The patient is a little more talkative today but not much, she states the shortness of breath is perhaps slightly better. Although it is difficult to tell. (3) Cancer associated pain Current Visit: Yes Status: Chronic Assessment and plan: The pain appears to be under reasonable control, however it is difficult to tell as the patient is not very talkative, discuss with primary care team I have adjusted the doses of her pain medications. We will continue to watch. (4) Goals of care, counseling/discussion Current Visit: Yes Status: Acute Assessment and plan: As of this morning the patient is now saying that she does not wish to have any further therapy. This is a massive change from yesterday. I have noted in the nurse's notes that her sensorium is seem to wax and wane and at this time she seems to be alert and oriented, however she is also not willing to really have a conversation. Stressed this with her nurses they are going to see where she stands as well and family should be in later today. She did say that she did not wish to have a medical power of director of supply chain appointed. She would Not discuss further why. - Time Spent With Patient Total time spent is greater than 50% in coordination of care (as documented) at patient's floor/unit and/or counseling patient: - Subjective Interval history: The patient is a little more talkative this morning than she was yesterday. Indicates that wishes to be taking care of from a symptomatic standpoint, however she continues to be very dismissive and does not want to go in and the depth or detail. When asked about CODE STATUS, she stated to just keep her comfortable. Did not wish me to go into any details, this is a change from yesterday. Discuss further when family comes in this afternoon. - Constitutional Vitals: Abnormal lab results WBC 12.3 K/mcL (4.3-11.1) H 11/26/16 04:09 Hgb 8.0 g/dL (11.5-15.4) L 11/26/16 04:09 Hct 29.2 % (35.3-44.9) L 11/26/16 04:09 MCV 66.5 fL (83.0-100.0) L 11/26/16 04:09 MCH 18.2 pg (28.0-33.3) L 11/26/16 04:09 MCHC 27.4 g/dL (31.6-35.5) L 11/26/16 04:09 RDW 25.2 % (11.5-14.5) H 11/26/16 04:09 MPV 9.0 fL (9.4-12.4) L 11/26/16 04:09 Neutrophils # 9.6 K/mcL (1.6-8.9) H 11/26/16 04:09 Monocytes # 1.6 K/mcL (0.0-1.3) H 11/26/16 04:09 Nucleated RBCs/100 WBC 0.7 /100 WBC (0) H 11/26/16 04:09 Polychromasia 1+ (Not Present) A 11/26/16 04:09 Hypochromasia Present (Not Present) A 11/26/16 04:09 Poikilocytosis 1+ (Not Present) A 11/26/16 04:09 Anisocytosis 2+ (Not Present) A 11/26/16 04:09 Microcytosis Present (Not Present) A 11/24/16 02:07 Target Cells 1+ (Not Present) A 11/26/16 04:09 PT 17.6 Seconds (9.4-12.1) H 11/24/16 02:07 D-Dimer 5839 ng/mLFEU (0-500) H 11/23/16 19:41 ABG pH 7.53 pH Units (7.32-7.45) H 11/25/16 15:55 ABG pCO2 34 mmHg (35-45) L 11/25/16 15:55 ABG pO2 65 mmHg (85-104) L 11/25/16 15:55 ABG HCO3 28.4 mEQ/L (21-27) H 11/25/16 15:55 ABG Total CO2 29.4 mEq/L (20-26) H 11/25/16 15:55 ABG Base Excess 5.4 mEq/L (-2.0 to 3.0) H 11/25/16 15:55 Sodium 134 mEq/L (136-145) L 11/26/16 04:09 POC Glucose 184 (58-89) H 11/25/16 10:55 Calculated Osmolality 277 (280-300) L 11/26/16 04:09 Magnesium 1.3 mg/dL (1.6-2.6) L 11/24/16 02:07 Iron 12 mcg/dL (50-170) L 11/25/16 04:16 % Saturation 10 % (15-50) L 11/25/16 04:16 Transferrin 84 mg/dL (180-382) L 11/25/16 04:16 Ferritin 384 ng/ml (5-204) H 11/25/16 04:16 Total Bilirubin 2.9 mg/dL (0.2-1.2) H 11/24/16 02:07 Direct Bilirubin 2.3 mg/dL (0.0-0.5) H 11/24/16 02:07 Alkaline Phosphatase 212 Units/L (38-126) H 11/24/16 02:07 B-Natriuretic Peptide 1057 pg/mL (0-100) H 11/24/16 02:07 Serum Total Protein 5.8 g/dL (6.0-8.3) L 11/24/16 02:07 Albumin 1.5 g/dL (3.5-5.0) L 11/24/16 02:07 Globulin 4.3 g/dL (2.4-3.5) H 11/24/16 02:07 Albumin/Globulin Ratio 0.3 (1.1-2.2) L 11/24/16 02:07 HDL Cholesterol 9 mg/dL (40-59) L 11/24/16 02:07 Cholesterol/HDL Ratio 11.7 (0-4.9) H 11/24/16 02:07 Folate 3.0 ng/mL (7.0-31.4) L 11/25/16 04:16 Urine Color [place] (Yellow) A 11/25/16 20:54 Urine Clarity Cloudy (Clear) A 11/25/16 20:54 Urine Protein 30 mg/dL (Neg-Trace) H 11/25/16 20:54 Urine Ketones Trace mg/dL (Negative) H 11/25/16 20:54 Urine Nitrite Positive (Negative) A 11/25/16 20:54 Urine Bilirubin Moderate (Negative) H 11/25/16 20:54 Urine Urobilinogen 4.0 mg/dL (Normal) H 11/25/16 20:54 Ur Leukocyte Esterase Small (Negative) H 11/25/16 20:54 Ur Squamous Epith Cells Many per lpf (None-Few) H 11/25/16 20:54 Ur Culture Indicated? YES (NO) A 11/25/16 20:54 General appearance: Present: no acute distress - Head Head exam: Present: atraumatic, normal inspection - Eye Eye exam: Present: normal appearance - ENT ENT exam: Present: mucous membranes moist - Respiratory Respiratory exam: Present: decreased breath sounds, wheezes - Cardiovascular Cardiovascular exam: Present: RRR - GI/Abdominal GI/Abdominal exam: Present: normal bowel sounds, soft. Absent: tenderness - Extremities Exam Extremities exam: Present: pedal edema. Absent: tenderness - Neurological Exam Neurological exam: Present: alert - Psychiatric Psychiatric exam: Absent: agitated, anxious - Skin Skin exam: Present: dry, warm Palliative Quality Palliative Quality: Screen for Code Status: Yes, Screen for Goals of Care: Yes, Screen for Pain: Yes, If Pain Regimen Started, Initiate Bowel Regimen: Yes, Screen for Nausea/Vomitting: Yes Code Status: 11/23/16 18:12 Resuscitation Status: Active [RES] Routine Comment: Resuscitation Status: Full Code - Labs CBC & Chem 7: 11/26/16 04:09 11/26/16 04:09 Labs: Laboratory Results - last 24 hr 11/25/16 11/25/16 11/25/16 10:55 15:44 15:55 WBC RBC Hgb Hct MCV MCH MCHC RDW Plt Count MPV Immature Gran % Seg Neutrophils % Lymphocytes % Monocytes % Eosinophils % Basophils % Neutrophils # Lymphocytes # Monocytes # Eosinophils # Basophils # Nucleated RBCs/100 WBC Platelet Estimate Polychromasia Hypochromasia Poikilocytosis Anisocytosis Target Cells ABG pH 7.53 H ABG pCO2 34 L ABG pO2 65 L ABG HCO3 28.4 H ABG Total CO2 29.4 H ABG O2 Saturation 95 ABG Base Excess 5.4 H Blood Gas Modality [place] Inspired O2 34 Sodium Potassium Chloride Carbon Dioxide BUN Creatinine Est GFR ( Amer) Est GFR (Non-Af Amer) BUN/Creatinine Ratio Glucose POC Glucose 184 H Calculated Osmolality Lactic Acid 1.0 Calcium Ammonia Urine Color Urine Clarity Urine pH Ur Specific [place] Urine Protein Urine Glucose (UA) Urine Ketones Urine Blood Urine Nitrite Urine Bilirubin Urine Urobilinogen Ur Leukocyte Esterase Urine Microscopic RBC Urine Microscopic WBC Ur Squamous Epith Cells Urine Bacteria Hyaline Casts Ur Culture Indicated? 11/25/16 11/25/16 11/26/16 18:26 20:54 04:09 WBC 12.3 H RBC 4.39 Hgb 8.0 L Hct 29.2 L MCV 66.5 L MCH 18.2 L MCHC 27.4 L RDW 25.2 H Plt Count 387 MPV 9.0 L Immature Gran % 1.1 Seg Neutrophils % 78.2 Lymphocytes % 5.5 Monocytes % 13.0 Eosinophils % 1.7 Basophils % 0.5 Neutrophils # 9.6 H Lymphocytes # 0.7 Monocytes # 1.6 H Eosinophils # 0.2 Basophils # 0.1 Nucleated RBCs/100 WBC 0.7 H Platelet Estimate Normal Polychromasia 1+ A Hypochromasia Present A Poikilocytosis 1+ A Anisocytosis 2+ A Target Cells 1+ A ABG pH ABG pCO2 ABG pO2 ABG HCO3 ABG Total CO2 ABG O2 Saturation ABG Base Excess Blood Gas Modality Inspired O2 Sodium Potassium Chloride Carbon Dioxide BUN Creatinine Est GFR ( Amer) Est GFR (Non-Af Amer) BUN/Creatinine Ratio Glucose POC Glucose Calculated Osmolality Lactic Acid Calcium Ammonia 39 Urine Color [place] A Urine Clarity Cloudy A Urine pH 6.0 Ur Specific [place] 1.024 Urine Protein 30 H Urine Glucose (UA) Normal Urine Ketones Trace H Urine Blood Negative Urine Nitrite Positive A Urine Bilirubin Moderate H Urine Urobilinogen 4.0 H Ur Leukocyte Esterase Small H Urine Microscopic RBC 0-3 Urine Microscopic WBC 0-3 Ur Squamous Epith Cells Many H Urine Bacteria None Seen Hyaline Casts None Seen Ur Culture Indicated? YES A 11/26/16 04:09 WBC RBC Hgb Hct MCV MCH MCHC RDW Plt Count MPV Immature Gran % Seg Neutrophils % Lymphocytes % Monocytes % Eosinophils % Basophils % Neutrophils # Lymphocytes # Monocytes # Eosinophils # Basophils # Nucleated RBCs/100 WBC Platelet Estimate Polychromasia Hypochromasia Poikilocytosis Anisocytosis Target Cells ABG pH ABG pCO2 ABG pO2 ABG HCO3 ABG Total CO2 ABG O2 Saturation ABG Base Excess Blood Gas Modality Inspired O2 Sodium 134 L Potassium 3.8 Chloride 100 Carbon Dioxide 25 BUN 10 Creatinine 0.68 Est GFR ( Amer) > 60 Est GFR (Non-Af Amer) > 60 BUN/Creatinine Ratio 15 Glucose 98 POC Glucose Calculated Osmolality 277 L Lactic Acid Calcium 8.6 Ammonia Urine Color Urine Clarity Urine pH Ur Specific [place] Urine Protein Urine Glucose (UA) Urine Ketones Urine Blood Urine Nitrite Urine Bilirubin Urine Urobilinogen Ur Leukocyte Esterase Urine Microscopic RBC Urine Microscopic WBC Ur Squamous Epith Cells Urine Bacteria Hyaline Casts Ur Culture Indicated? - Impressions Impressions Head CT 11/25/16 08:12 IMPRESSION: 1. Hypoattenuation is seen within the left frontal lobe, which may represent edema surrounding enhancing lesion noted on the prior MRI. 2. There is no evidence of mass effect or midline shift. 3. No acute intracranial abnormality. 4. Bilateral maxillary sinusitis. D/ / Tacos Rowley MD / Tacos Rowley MD Interpreting Provider: Tacos Rowley MD - ABG Interpretation ABG results: ABG ABG pH 7.53 pH Units (7.32-7.45) H 11/25/16 15:55 ABG pCO2 34 mmHg (35-45) L 11/25/16 15:55 ABG pO2 65 mmHg (85-104) L 11/25/16 15:55 ABG O2 Saturation 95 % (95-98) 11/25/16 15:55 PT/INR, D-dimer PT 17.6 Seconds (9.4-12.1) H 11/24/16 02:07 D-Dimer 5839 ng/mLFEU (0-500) H 11/23/16 19:41 Consult Discharge Plan - Plan Referrals: Harlan Epperson, [Primary Care Provider] - (Please make sure to call your family physician for hospital dfollow up)
[2016-11-26] MEDS: *HR* OxyCODONE Immed Rel 15 MG TABLET PO PRN (08:34)
[2016-11-26] MEDS: Loratadine 10 MG TABLET PO SCH (08:35)
[2016-11-26] MEDS: Folic Acid 1 MG TABLET PO SCH (08:36)
[2016-11-26] MEDS ORDERED: *HR* OxyCODONE Immed Rel 15 MG TABLET PO PRN ×2 (08:42→09:31)
[2016-11-26] MEDS ORDERED: Furosemide 40 MG/4 ML VIAL IVP SCH (09:00)
--- NOTE | 2016-11-26 09:34 | Oncology Inp Consult Note ---
Date of Encounter: 11/26/16 Time of Encounter: 12:00 Assessment and Plan (1) Metastatic renal cell carcinoma Status: Chronic Assessment and plan: Patient with carcinoma status post multiple metastatic lesions, palliative radiation, TKI therapy, status recently nivolumab 3 treatments- noncompliance with treatment last treatment in October 2016, Ct imaging chest shwing incresae in size of multiple lumg lesions nad new lung mets-likely progression due to non compliance. Pain on morphine Sr and oxycodone 30 q 3prn. Appears sedated, ? declining PS-hx brain mets s/p RT. Reimaging Ct consistent with prior MRI findings. PAlliative care may be appropriate if patient's performace status not improved. Will discuss with primary oncologist. Palliative medicine follow up and input appreciated. Qualifiers: Laterality: unspecified laterality Qualified Code(s): C64.9 - Malignant neoplasm of unspecified kidney, except renal pelvis - Data of Consult Requesting Physician: Memo Cassidy MD Primary Care Provider: Harlan Epperson DO - Consult Narrative Reason for consult: Metastatic renal cell cancer History of present illness: Ms. Gavin is a 56 year old female with medical history significant for hypertension, smoking history, right humerus fracture status post open reduction internal fixation, with history of metastatic renal cell carcinoma with multiple spine metastatic disease diagnosed in the November 2015 she had undergone vertebral resection T9, in December 2015, kidney mass measured 11.2 x 9.2 cm initially, she underwent palliative symptomatic treatment with pazopanib about from December 2015 to March 2016 and palliative radiation to the spinal metastatic disease. She had also undergone radiation to right shoulder in May 2016. Patient was last seen in oncology clinic in August when she was scheduled to undergo nivolumab treatments. s/p brain radiation therapy for metastatic disease. Patient had undergone palliative right nephrectomy as well. She is Hospitalized for generalized pain, shortness of breath. Patient is mostly in the back, denied any other associated symptoms. Home medications included morphine sulfate 30 mg every 8 hours and oxycodone 30 mg every 4-6 hours for breakthrough pain. She had undergone a CT imaging of the chest as well as CT scan of the head. CT chest shows significantly increased size and number of metastatic lung lesions. Left side mild to moderate effusion is also noted. Patient's last treatment was in October 2016. She is very noncompliant to treatments. So far she has received monthly treatments 3 since July 2016 of nivolumab Past Med Surg Social Fam HX - Past Medical History Medical history: cancer, hypertension, renal disease, other Psychiatric history: anxiety - Past Surgical History Surgical History: appendectomy, hysterectomy - Social History Smoking Status: Current every day smoker Smokeless Tobacco Status: No Alcohol use: none Drug use: none - Family History Mother Race: Family Member Ethnicity: Non- Living Status: Age at : 77 Hx Family Endocrine Disorder: Yes (DM) Brother Race: Family Member Ethnicity: Non- Living Status: Cause of : Lung cancer Hx Family Cancer: Yes (Lung) Medications and Allergies Alprazolam [Xanax] 2 mg PO TID 11/24/15 [History] Morphine Sulfate SR (12 HR) [MS Contin] 30 mg PO Q8H #90 tablet.er 11/06/16 [Rx] Albuterol Sulfate [Proair Hfa] 1 puff IH QID PRN 11/23/16 [History] Guaifenesin [Mucinex] 600 mg PO BID PRN 11/23/16 [History] Loratadine [Claritin] 10 mg PO DAILY 11/23/16 [History] Metoprolol XL (24 HR) Succ [Toprol XL] 25 mg PO DAILY 11/23/16 [History] Oxycodone HCl [Roxicodone 30 MG Immed Release] 30 mg PO Q4-6H PRN 11/23/16 [ History] Promethazine Syrup [Phenergan Syrup] 12.5 - 25 mg PO Q8HR PRN 11/23/16 [History] hydroCHLOROthiazide [Hydrochlorothiazide] 12.5 mg PO DAILY 11/23/16 [History] Allergies hydrocodone Adverse Reaction (Verified 11/23/16 14:11) Nausea Hydromorphone [From Dilaudid] Adverse Reaction (Verified 11/23/16 14:11) Nausea ROS unobtainable: due to mental status Review of systems: lethargy Oncology - Exam - Constitutional Vitals: Temp Pulse Resp BP Pulse Ox 98.6 F 107 16 93/56 97 11/26/16 09:09 11/26/16 09:09 11/26/16 09:09 11/26/16 09:09 11/26/16 09:09 General appearance: mild distress, thin - Head Head exam: Present: atraumatic, normal inspection - Eye Eye exam: Present: conjunctival injection - ENT ENT exam: Present: mucous membranes dry - Neck Neck exam: Present: normal inspection - Respiratory Respiratory exam: Present: CTAB, tachypnea - Cardiovascular Cardiovascular exam: Present: +S1, +S2 - GI/Abdominal GI/Abdominal exam: Present: soft, tenderness - Extremities Exam Extremities exam: Present: full ROM - Neurological Exam Neurological exam: Present: altered Additional comments: oriented x2, moving all 4 extremities and answers questions though not able to follow through conversation - Psychiatric Additional comments: not able to assess Oncology - Results - Labs Labs: Short CBC 11/26/16 Range/Units 04:09 WBC 12.3 H (4.3-11.1) K/mcL Hgb 8.0 L (11.5-15.4) g/dL Hct 29.2 L (35.3-44.9) % Plt Count 387 (140-400) K/mcL Neutrophils # 9.6 H (1.6-8.9) K/mcL BMP 11/26/16 04:09 Sodium 134 L Potassium 3.8 Chloride 100 Carbon Dioxide 25 BUN 10 Creatinine 0.68 Glucose 98 Calcium 8.6 Urine 11/25/16 Range/Units 20:54 Urine Color [place] A (Yellow) Urine Clarity Cloudy A (Clear) Urine pH 6.0 (5.0-8.0) pH Units Ur Specific Iron 1.024 (1.010-1.025) Urine Protein 30 H (Neg-Trace) mg/dL Urine Glucose (UA) Normal (Normal) mg/dL - Imaging and Cardiology CT scan - chest Status: image reviewed by me Consult Discharge Plan - Plan Referrals: Harlan Epperson DO [Primary Care Provider] - (Please make sure to call your family physician for hospital dfollow up)
[2016-11-26] MEDS: Sodium Ferric Gluconat/Sucrose 250 MG in 0.9 % Sodium Chloride 100 ML IVPB SCH (11:52)
--- NOTE | 2016-11-26 12:11 | Gastroenterology Consult Note ---
<Mark Mera - Last Filed: 11/26/16 12:09> Date of Encounter: 11/26/16 Time of Encounter: 10:40 - Assessment and plan (1) Anemia Current Visit: Yes Status: Acute Assessment and plan: Continue to monitor CBC and transfuse as needed. Pt unwilling to discuss EGD/ colonoscopy. Could be secondary to metastatic renal cell carcinoma with recent chemotherapy. Will discuss with Dr. Chen. Qualifiers: Anemia type: other cause Other causes of anemia: chronic disease, other Qualified Code(s): D63.8 - Anemia in other chronic diseases classified elsewhere (2) Metastatic renal cell carcinoma Current Visit: Yes Status: Chronic Assessment and plan: Management per oncology. Qualifiers: Laterality: unspecified laterality Qualified Code(s): C64.9 - Malignant neoplasm of unspecified kidney, except renal pelvis - Time Spent With Patient Total time spent is greater than 50% in coordination of care (as documented) at patient's floor/unit and/or counseling patient: GI History of Present Illness - Data of Consult Patient: new to practice Consult date: 11/26/16 Requesting Physician: Memo Cassidy MD - Consult Narrative Reason for consult: anemia History of present illness: Ms. Gavin is a 56 year old female with PMHx of renal cell carcinoma with metastasis to spine, lung, and brain, HTN, renal disease who complained of bilateral lower extremity swelling and difficulty breathing worsening over the past 3 weeks. She denied chest pain, abdominal pain, nausea, or vomiting. We have been consulted for anemia. Pt has been anemic since 10/2016. She has undergone radiation therapy, chemotherapy, right nephrectomy, and her last treatment of Nivolumab was 10/2016. Pt was unwilling to talk this AM, and information was gathered from the medical record. Procedures: None NSAIDs: None Anticoagulation: None Past Med Surg Social Fam HX - Past Medical History Medical history: cancer, hypertension, renal disease, other Psychiatric history: anxiety - Past Surgical History Surgical History: appendectomy, hysterectomy - Social History Smoking Status: Current every day smoker Smokeless Tobacco Status: No Alcohol use: none Drug use: none - Family History Mother Race: Family Member Ethnicity: Non- Living Status: Age at : 77 Hx Family Endocrine Disorder: Yes (DM) Brother Race: Family Member Ethnicity: Non- Living Status: Cause of : Lung cancer Hx Family Cancer: Yes (Lung) ROS unobtainable: other (Pt unwilling to answer questions) - Constitutional Vitals: Temp Pulse Resp BP Pulse Ox 98.2 F 111 17 93/51 100 11/26/16 11:30 11/26/16 11:30 11/26/16 11:30 11/26/16 11:30 11/26/16 11:30 General appearance: Present: cooperative, A&O X 3, no acute distress, answers questions appropriately - Head Head exam: Present: atraumatic, normocephalic - Eye Eye exam: Present: normal appearance, sclera anicteric - ENT ENT exam: Present: mucous membranes dry - Neck Neck exam general surgery: Present: normal inspection, trachea midline - Respiratory Respiratory exam: Present: decreased breath sounds, wheezes - Cardiovascular Cardiovascular exam: Present: RRR, +S1, +S2 - GI/Abdominal GI/Abdominal exam: Present: soft, no peritoneal signs. Absent: distended, firm , guarding, tenderness - Rectal Rectal exam: Present: deferred - Extremities Exam Extremities exam: Present: warm - Neurological Exam Neurological exam: Present: no focal deficits - Psychiatric Psychiatric exam: Present: normal affect, normal mood - Skin Skin exam: Present: dry, intact, normal color, warm Results - Labs CBC & Chem 7: 11/26/16 04:09 11/26/16 04:09 Labs: Last Result Calcium 8.6 mg/dL (8.6-10.8) 11/26/16 04:09 Iron 12 mcg/dL (50-170) L 11/25/16 04:16 % Saturation 10 % (15-50) L 11/25/16 04:16 Transferrin 84 mg/dL (180-382) L 11/25/16 04:16 Ferritin 384 ng/ml (5-204) H 11/25/16 04:16 Troponin I 0.02 ng/mL (0-0.03) 11/24/16 02:07 Triglycerides 111 mg/dL (< 150) 11/24/16 02:07 Vitamin B12 482 pg/mL (213-816) 11/25/16 04:16 Folate 3.0 ng/mL (7.0-31.4) L 11/25/16 04:16 Entire Visit Hgb 8.0 g/dL (11.5-15.4) L 11/26/16 04:09 Hct 29.2 % (35.3-44.9) L 11/26/16 04:09 PT 17.6 Seconds (9.4-12.1) H 11/24/16 02:07 Ferritin 384 ng/ml (5-204) H 11/25/16 04:16 Total Bilirubin 2.9 mg/dL (0.2-1.2) H 11/24/16 02:07 AST 18 Units/L (5-34) 11/24/16 02:07 ALT 6 Units/L (0-55) 11/24/16 02:07 Ammonia 39 mcmol/L (18-72) 11/25/16 18:26 Folate 3.0 ng/mL (7.0-31.4) L 11/25/16 04:16 - ABG ABG results: ABG ABG pH 7.53 pH Units (7.32-7.45) H 11/25/16 15:55 ABG pCO2 34 mmHg (35-45) L 11/25/16 15:55 ABG pO2 65 mmHg (85-104) L 11/25/16 15:55 ABG O2 Saturation 95 % (95-98) 11/25/16 15:55 PT/INR, D-dimer PT 17.6 Seconds (9.4-12.1) H 11/24/16 02:07 D-Dimer 5839 ng/mLFEU (0-500) H 11/23/16 19:41 Consult Discharge Plan - Plan Referrals: Harlan Epperson DO [Primary Care Provider] - (Please make sure to call your family physician for hospital dfollow up) <Sally Chen - Last Filed: 11/26/16 15:09> Date of Encounter: 11/26/16 Time of Encounter: 14:30 - Time Spent With Patient Total time spent is greater than 50% in coordination of care (as documented) at patient's floor/unit and/or counseling patient: GI History of Present Illness - Data of Consult Requesting Physician: Memo Cassidy MD - Consult Narrative History of present illness: Ms. Gavin is a 56 year old female - Constitutional Vitals: Temp Pulse Resp BP Pulse Ox 99.1 F 112 16 93/60 96 06/12/17 14:41 11/26/16 15:00 11/26/16 15:00 11/26/16 15:00 11/26/16 15:00 Results - Labs CBC & Chem 7: 11/26/16 04:09 11/26/16 04:09 Labs: Last Result Calcium 8.6 mg/dL (8.6-10.8) 11/26/16 04:09 Iron 12 mcg/dL (50-170) L 11/25/16 04:16 % Saturation 10 % (15-50) L 11/25/16 04:16 Transferrin 84 mg/dL (180-382) L 11/25/16 04:16 Ferritin 384 ng/ml (5-204) H 11/25/16 04:16 Troponin I 0.02 ng/mL (0-0.03) 11/24/16 02:07 Triglycerides 111 mg/dL (< 150) 11/24/16 02:07 Vitamin B12 482 pg/mL (213-816) 11/25/16 04:16 Folate 3.0 ng/mL (7.0-31.4) L 11/25/16 04:16 Entire Visit Hgb 8.0 g/dL (11.5-15.4) L 11/26/16 04:09 Hct 29.2 % (35.3-44.9) L 11/26/16 04:09 PT 17.6 Seconds (9.4-12.1) H 11/24/16 02:07 Ferritin 384 ng/ml (5-204) H 11/25/16 04:16 Total Bilirubin 2.9 mg/dL (0.2-1.2) H 11/24/16 02:07 AST 18 Units/L (5-34) 11/24/16 02:07 ALT 6 Units/L (0-55) 11/24/16 02:07 Ammonia 39 mcmol/L (18-72) 11/25/16 18:26 Folate 3.0 ng/mL (7.0-31.4) L 11/25/16 04:16 - ABG ABG results: ABG ABG pH 7.53 pH Units (7.32-7.45) H 11/25/16 15:55 ABG pCO2 34 mmHg (35-45) L 11/25/16 15:55 ABG pO2 65 mmHg (85-104) L 11/25/16 15:55 ABG O2 Saturation 95 % (95-98) 11/25/16 15:55 PT/INR, D-dimer PT 17.6 Seconds (9.4-12.1) H 11/24/16 02:07 D-Dimer 5839 ng/mLFEU (0-500) H 11/23/16 19:41 - Attending Attestation I examined this patient and my medical decision-making was reviewed with the MEDIA MARKETING SPECIALIST/PA/Advanced Practice Nurse/Resident Physician. I agree with the documented findings, disposition and treatment plan as described except to the extent set forth below. Pt very risk for endoscopies, only do if urgently needed
[2016-11-26] MEDS ORDERED: 0.9 % Sodium Chloride 250 ML IVC ONE (13:33)
--- NOTE | 2016-11-26 17:17 | Internal Med Progress Note ---
Date of Encounter: 11/26/16 Time of Encounter: 17:15 - Assessment and plan (1) Acute respiratory failure with hypoxia Current Visit: Yes Status: Acute Assessment and plan: Continue O2 supplementation. Presently on 2 L nasal cannula. Remains tachypneic although this improves after she receives pain medications. High- risk for complications. (2) Anemia Current Visit: Yes Status: Acute Assessment and plan: Hemoglobin 8 today. GI has been consulted. Folic acid deficiency and iron deficiency. Replacing. Continue to monitor blood counts. Qualifiers: Anemia type: other cause Other causes of anemia: chronic disease, other Qualified Code(s): D63.8 - Anemia in other chronic diseases classified elsewhere (3) Bilateral lower extremity edema Current Visit: Yes Status: Acute Assessment and plan: Was treating with Lasix. However due to low blood pressure will stop Lasix for now. (4) Cancer associated pain Current Visit: Yes Status: Chronic Assessment and plan: Continue pain medications per palliative care recommendations (5) Metastatic renal cell carcinoma Current Visit: Yes Status: Chronic Assessment and plan: Oncology has been consulted and evaluated patient. Recommend palliative care. Palliative care is following and is status with patient and her family. So far patient wishes to remain full code. Poor overall prognosis based on worsening lesions noted on chest CT. CT head also shows persistent brain metastatic lesions Qualifiers: Laterality: unspecified laterality Qualified Code(s): C64.9 - Malignant neoplasm of unspecified kidney, except renal pelvis (6) Tachycardia Current Visit: Yes Status: Acute Assessment and plan: Patient had an episode of supraventricular tachycardia/A. fib flutter. Cardiology has been consulted. We will follow recommendations. (7) Hypotension Current Visit: Yes Status: Chronic Assessment and plan: Chronic hypotension. Will check serum cortisol. Consider Midodrine if this persists. Hypotension limits the ability to give Cardizem or metoprolol to treat her tachycardia. Qualifiers: Hypotension type: other hypotension type Qualified Code(s): I95.89 - Other hypotension (8) Urinary tract infection, acute Current Visit: Yes Status: Acute Assessment and plan: Without hematuria. Patient has leukocytosis and positive leukocyte esterase and nitrate and urine. We will treat for possible UTI and follow culture results with ciprofloxacin - Subjective Interval history: Patient was continues to be tachypneic and complaining of pain related to her cancer. Her blood pressure has remained on the lower side. This afternoon she developed an episode of tachycardia. An initial EKG it was a regular supraventricular ventricular tachycardia with concern for a flutter. She was medicated with small dose of Cardizem which slowed down her heart rate and the rhythm remained sinus tachycardia. Since then her heart rate has improved but remains between 100-110. Denies any chest pain. Has been having some low- grade fever with MAXIMUM TEMPERATURE of 99.2. - Constitutional Vitals: Temp Pulse Resp BP Pulse Ox 99.2 F 106 16 84/46 99 11/26/16 16:47 11/26/16 16:47 11/26/16 16:47 11/26/16 16:47 11/26/16 16:47 General appearance: Present: cooperative, mild distress, A&O X 3, pleasant, answers questions appropriately - Neck Neck exam general surgery: Present: supple, trachea midline. Absent: lymphadenopathy - Respiratory Respiratory exam: Present: decreased breath sounds (At both bases), rhonchi, tachypnea. Absent: accessory muscle use, rales, wheezes - Cardiovascular Cardiovascular exam: Present: RRR, +S1, +S2. Absent: diastolic murmur, gallop, rubs, systolic murmur - Extremities Exam Extremities exam: Present: pedal edema, warm, radial pulses palpable and symetrical. Absent: calf tenderness, cyanotic - Neurological Exam Neurological exam: Present: alert, CN II-XII intact, oriented X3, no focal deficits. Absent: facial droop, speech deficit Internal Medicine: Result - Labs CBC & Chem 7: 11/26/16 04:09 11/26/16 04:09 Labs: Short CBC 11/26/16 Range/Units 04:09 WBC 12.3 H (4.3-11.1) K/mcL Hgb 8.0 L (11.5-15.4) g/dL Hct 29.2 L (35.3-44.9) % Plt Count 387 (140-400) K/mcL Neutrophils # 9.6 H (1.6-8.9) K/mcL BMP 11/26/16 04:09 Sodium 134 L Potassium 3.8 Chloride 100 Carbon Dioxide 25 BUN 10 Creatinine 0.68 Glucose 98 Calcium 8.6 Urine 11/25/16 Range/Units 20:54 Urine Color [place] A (Yellow) Urine Clarity Cloudy A (Clear) Urine pH 6.0 (5.0-8.0) pH Units Ur Specific [place] 1.024 (1.010-1.025) Urine Protein 30 H (Neg-Trace) mg/dL Urine Glucose (UA) Normal (Normal) mg/dL - ABG Interpretation ABG results: ABG ABG pH 7.53 pH Units (7.32-7.45) H 11/25/16 15:55 ABG pCO2 34 mmHg (35-45) L 11/25/16 15:55 ABG pO2 65 mmHg (85-104) L 11/25/16 15:55 ABG O2 Saturation 95 % (95-98) 11/25/16 15:55 PT/INR, D-dimer PT 17.6 Seconds (9.4-12.1) H 11/24/16 02:07 D-Dimer 5839 ng/mLFEU (0-500) H 11/23/16 19:41 Consult Discharge Plan - Plan Referrals: Harlan Epperson, [Primary Care Provider] - (Please make sure to call your family physician for hospital dfollow up)
[2016-11-26] MEDS: *HR* Morphine Sulfate SR (12 HR) 30 MG TABLET.ER PO SCH (17:22)
[2016-11-26] MEDS: Magic Mouthwash 10 ML UD Cup PO SCH (22:16)
[2016-11-27] MEDS: *HR* Enoxaparin 40 MG/0.4 ML SYRINGE SQ SCH (06:05)
[2016-11-27] MEDS: Pantoprazole 40 MG VIAL IVP SCH (06:05)
[2016-11-27] MEDS: *HR* Morphine Sulfate SR (12 HR) 30 MG TABLET.ER PO SCH ×2 (06:05→17:05)
[2016-11-27 07:20] LABS: Eosinophils # 0.2 K/mcL (0.0-0.6); Hematocrit 31.6 % (35.3-44.9); Hemoglobin 8.6 g/dL (11.5-15.4); Mean Corpuscular HGB Conc 27.2 g/dL (31.6-35.5); Mean Corpuscular Volume 69.9 fL (83.0-100.0); Mean Platelet Volume 9.5 fL (9.4-12.4); Nucleated Red Blood Cells 0.7 /100 WBC (0); Platelet Count 277 K/mcL (140-400); Red Blood Count 4.52 M/mcL (3.82-4.97); Red Cell Distribution Width 26.6 % (11.5-14.5)
[2016-11-27 07:25] LABS: BUN/Creatinine Ratio 17 (6-26); Blood Urea Nitrogen 12 mg/dL (7-20); Calcium 8.9 mg/dL (8.6-10.8); Carbon Dioxide 26 mEq/L (19-29); Chloride 99 mEq/L (98-109); Glucose 110 mg/dL (70-99); Osmolality,Calculated 280 (280-300); Potassium 3.8 mEq/L (3.5-4.5); Sodium 135 mEq/L (136-145); eGFR For African Americans > 60 (> 60); eGFR For Non-African Americans > 60 (> 60)
[2016-11-27] MEDS: Folic Acid 1 MG TABLET PO SCH (08:42)
[2016-11-27] MEDS: Magic Mouthwash 10 ML UD Cup PO SCH ×4 (08:43→17:07)
[2016-11-27] MEDS: Loratadine 10 MG TABLET PO SCH (08:43)
[2016-11-27 08:52] LABS: Lymphocytes # 0.5 K/mcL (0.6-4.6); Monocytes # 1.2 K/mcL (0.0-1.3); Neutrophils # 9.7 K/mcL (1.6-8.9)
[2016-11-27 08:53] LABS: Anisocytosis 3+ (Not Present); Polychromasia 1+ (Not Present)
[2016-11-27 08:54] LABS: Burr Cells 1+ (Not Present); Hypochromasia Present (Not Present); Microcytosis Present (Not Present); Platelet Estimate Normal (Normal)
[2016-11-27] MEDS: Sodium Ferric Gluconat/Sucrose 250 MG in 0.9 % Sodium Chloride 100 ML IVPB SCH (09:16)
--- NOTE | 2016-11-27 09:38 | Palliative Progress Note ---
Date of Encounter: 11/27/16 Time of Encounter: 09:00 - Assessment and plan (1) Generalized pain Current Visit: Yes Status: Acute Assessment and plan: The patient reports the pain is much better. current regimen. (2) SOB (shortness of breath) Current Visit: Yes Status: Acute Assessment and plan: The patient is much more talkative today and much more pleasant. The patient states her breathing is better. (3) Cancer associated pain Current Visit: Yes Status: Chronic Assessment and plan: The pain appears to be better, we will current regimen. (4) Goals of care, counseling/discussion Current Visit: Yes Status: Acute Assessment and plan: Met with patient, and her sister who is also her medical power of estate attorney. Dictated that she wished to be treated at least for now, however if her heart stops or her breathing stop should like to be allowed to go with God. Therefore she is changed to DNR CCA, DNI E and her sister are continuing to discuss the possibility of hospice care as the patient's cancer seems to not be responding to the latest medications from the cancer center. - Time Spent With Patient Total time spent is greater than 50% in coordination of care (as documented) at patient's floor/unit and/or counseling patient: - Subjective Interval history: The patient is feeling much better this morning. States her pain is under much better control her breathing is easier. Discussed CODE STATUS with she and her sister, who is her medical power of estate attorney she wishes to be treated, however she does not wish to be treated in the event of cardiac arrest. Changed CODE STATUS please see the assessment and plan.. - Constitutional Vitals: Abnormal lab results WBC 11.6 K/mcL (4.3-11.1) H 11/27/16 06:32 Hgb 8.6 g/dL (11.5-15.4) L 11/27/16 06:32 Hct 31.6 % (35.3-44.9) L 11/27/16 06:32 MCV 69.9 fL (83.0-100.0) L 11/27/16 06:32 MCH 19.0 pg (28.0-33.3) L 11/27/16 06:32 MCHC 27.2 g/dL (31.6-35.5) L 11/27/16 06:32 RDW 26.6 % (11.5-14.5) H 11/27/16 06:32 Neutrophils # 9.7 K/mcL (1.6-8.9) H 11/27/16 06:32 Lymphocytes # 0.5 K/mcL (0.6-4.6) L 11/27/16 06:32 Nucleated RBCs/100 WBC 0.7 /100 WBC (0) H 11/27/16 06:32 Polychromasia 1+ (Not Present) A 11/27/16 06:32 Hypochromasia Present (Not Present) A 11/27/16 06:32 Poikilocytosis 1+ (Not Present) A 11/26/16 04:09 Anisocytosis 3+ (Not Present) A 11/27/16 06:32 Microcytosis Present (Not Present) A 11/27/16 06:32 Target Cells 1+ (Not Present) A 11/26/16 04:09 Leonardo Cells 1+ (Not Present) A 11/27/16 06:32 PT 17.6 Seconds (9.4-12.1) H 11/24/16 02:07 D-Dimer 5839 ng/mLFEU (0-500) H 11/23/16 19:41 ABG pH 7.53 pH Units (7.32-7.45) H 11/25/16 15:55 ABG pCO2 34 mmHg (35-45) L 11/25/16 15:55 ABG pO2 65 mmHg (85-104) L 11/25/16 15:55 ABG HCO3 28.4 mEQ/L (21-27) H 11/25/16 15:55 ABG Total CO2 29.4 mEq/L (20-26) H 11/25/16 15:55 ABG Base Excess 5.4 mEq/L (-2.0 to 3.0) H 11/25/16 15:55 Sodium 135 mEq/L (136-145) L 11/27/16 06:32 Glucose 110 mg/dL (70-99) H 11/27/16 06:32 POC Glucose 184 (58-89) H 11/25/16 10:55 Magnesium 1.3 mg/dL (1.6-2.6) L 11/24/16 02:07 Iron 12 mcg/dL (50-170) L 11/25/16 04:16 % Saturation 10 % (15-50) L 11/25/16 04:16 Transferrin 84 mg/dL (180-382) L 11/25/16 04:16 Ferritin 384 ng/ml (5-204) H 11/25/16 04:16 Total Bilirubin 2.9 mg/dL (0.2-1.2) H 11/24/16 02:07 Direct Bilirubin 2.3 mg/dL (0.0-0.5) H 11/24/16 02:07 Alkaline Phosphatase 212 Units/L (38-126) H 11/24/16 02:07 B-Natriuretic Peptide 1057 pg/mL (0-100) H 11/24/16 02:07 Serum Total Protein 5.8 g/dL (6.0-8.3) L 11/24/16 02:07 Albumin 1.5 g/dL (3.5-5.0) L 11/24/16 02:07 Globulin 4.3 g/dL (2.4-3.5) H 11/24/16 02:07 Albumin/Globulin Ratio 0.3 (1.1-2.2) L 11/24/16 02:07 HDL Cholesterol 9 mg/dL (40-59) L 11/24/16 02:07 Cholesterol/HDL Ratio 11.7 (0-4.9) H 11/24/16 02:07 Folate 3.0 ng/mL (7.0-31.4) L 11/25/16 04:16 Urine Color [place] (Yellow) A 11/25/16 20:54 Urine Clarity Cloudy (Clear) A 11/25/16 20:54 Urine Protein 30 mg/dL (Neg-Trace) H 11/25/16 20:54 Urine Ketones Trace mg/dL (Negative) H 11/25/16 20:54 Urine Nitrite Positive (Negative) A 11/25/16 20:54 Urine Bilirubin Moderate (Negative) H 11/25/16 20:54 Urine Urobilinogen 4.0 mg/dL (Normal) H 11/25/16 20:54 Ur Leukocyte Esterase Small (Negative) H 11/25/16 20:54 Ur Squamous Epith Cells Many per lpf (None-Few) H 11/25/16 20:54 Ur Culture Indicated? YES (NO) A 11/25/16 20:54 General appearance: Present: no acute distress - Head Head exam: Present: atraumatic, normal inspection - Eye Eye exam: Present: normal appearance - ENT ENT exam: Present: mucous membranes moist - Respiratory Respiratory exam: Present: decreased breath sounds - Cardiovascular Cardiovascular exam: Present: RRR - GI/Abdominal GI/Abdominal exam: Present: normal bowel sounds, soft. Absent: tenderness - Extremities Exam Extremities exam: Present: pedal edema - Neurological Exam Neurological exam: Present: alert - Psychiatric Psychiatric exam: Absent: agitated, anxious - Skin Skin exam: Present: dry, warm Palliative Quality Palliative Quality: Screen for Code Status: Yes, Screen for Goals of Care: Yes, Screen for Pain: Yes, If Pain Regimen Started, Initiate Bowel Regimen: Yes, Screen for Nausea/Vomitting: Yes - Labs CBC & Chem 7: 11/27/16 06:32 11/27/16 06:32 Labs: Laboratory Results - last 24 hr 11/27/16 11/27/16 06:32 06:32 WBC 11.6 H RBC 4.52 Hgb 8.6 L Hct 31.6 L MCV 69.9 L MCH 19.0 L MCHC 27.2 L RDW 26.6 H Plt Count 277 MPV 9.5 Seg Neutrophils % 84.0 Lymphocytes % 4.0 Monocytes % 10.0 Eosinophils % 2.0 Neutrophils # 9.7 H Lymphocytes # 0.5 L Monocytes # 1.2 Eosinophils # 0.2 Nucleated RBCs/100 WBC 0.7 H Platelet Estimate Normal Polychromasia 1+ A Hypochromasia Present A Anisocytosis 3+ A Microcytosis Present A Mart Cells 1+ A Sodium 135 L Potassium 3.8 Chloride 99 Carbon Dioxide 26 BUN 12 Creatinine 0.72 Est GFR ( Amer) > 60 Est GFR (Non-Af Amer) > 60 BUN/Creatinine Ratio 17 Glucose 110 H Calculated Osmolality 280 Calcium 8.9 - ABG Interpretation ABG results: ABG ABG pH 7.53 pH Units (7.32-7.45) H 11/25/16 15:55 ABG pCO2 34 mmHg (35-45) L 11/25/16 15:55 ABG pO2 65 mmHg (85-104) L 11/25/16 15:55 ABG O2 Saturation 95 % (95-98) 11/25/16 15:55 PT/INR, D-dimer PT 17.6 Seconds (9.4-12.1) H 11/24/16 02:07 D-Dimer 5839 ng/mLFEU (0-500) H 11/23/16 19:41 Consult Discharge Plan - Plan Referrals: Harlan Epperson DO [Primary Care Provider] - (Please make sure to call your family physician for hospital follow up)
--- NOTE | 2016-11-27 11:26 | Electrocardiograph Report ---
[address] [address] Test Date: 2016-11-26 Pat Name: Elen Gavin Department: 112 Room: 2A24 Gender: F [employer] Teacher: BRENT : 1960 Requested By: Alicja Ward Order Number: [id number] Reading MD: Jennifer Barreto Measurements Intervals [place] Rate: 152 P: IN: 0 QRS: 6 QRSD: 99 T: 258 QT: 278 QTc: 364 Interpretive Statements ATRIAL FLUTTER/TACHYCARDIA WITH RAPID VENTRICULAR RESPONSE INFERIOR MYOCARDIAL INFARCTION, OF INDETERMINATE AGE MODERATE T-WAVE ABNORMALITY, CONSIDER LATERAL ISCHEMIA V1 not suitable for interpretation Electronically Signed On 11-27-2016 11:25:02 EDT by Jennifer Barreto
--- NOTE | 2016-11-27 12:54 | Cardiology Consult Note ---
Date of Encounter: 11/27/16 Time of Encounter: 13:00 Assessment and Plan (1) Metastatic renal cell carcinoma Current Visit: Yes Status: Chronic Per Cardiology: Records reviewed: "Patient with carcinoma status post multiple metastatic lesions, palliative radiation, TKI therapy, status recently nivolumab 3 treatments- noncompliance with treatment last treatment in October 2016, CT imaging chest showing increase in size of multiple lung lesions and new lung mets- likely progression due to non compliance". Patient is now DNR/CCA/DNI. Palliative care following. Qualifiers: Laterality: unspecified laterality Qualified Code(s): C64.9 - Malignant neoplasm of unspecified kidney, except renal pelvis (2) Tachycardia Current Visit: Yes Status: Acute Per Cardiology: ECG and tele reviewed with Dr. Abner Barreto, suspected ST. No aflutter/afib appreciated. Currently ST 103. Suspect mutlifactorial causes: Metastatic renal carcinoma, cancer related pain, hypotension. Patient appears to be on Toprol XL 25mg PO daily at home. Currently off, suspect d/t hypotension-- SBP 80's 100's. Consider resuming lower dose if warranted and able. Discussed and reviewed with Dr. Abner Barreto, no further recs at this time. Patient with no questions. If patient were to develop afib or aflutter, would be deemed a poor anticoagulation candidate d/t comorbid condition and medical noncompliance. Will s/o, re-consult PRN, primary service reports possible DC today. Discussion w patient/family: The assessment and plan as outlined above was discussed with the patient who expressed understanding and agreement. All questions were answered. Thank you for involving us in the care of your patient. Please call with any questions. History of Present Illness Consult date: 11/27/16 Requesting physician: Memo Cassidy Consult reason: Tachycardia Chief complaint: SOB, Edema History of present illness: Ms. Gavin is a 56 year old AA female with relevant past medical history of hypertension, nicotine abuse, and metastatic renal carcinoma. Initially admitted for edema and SOB. Patient is DNR/CCA/DNI. Cardiology consult today for tachycardia. Patient denies any CP, palps. Patient reports SOB has improved. No family at bedside. Patient alert and oriented, was not able to provide much history. Questions answered with slow, short responses. Past Med Surg Social Fam HX - Past Medical History Attestation: Yes The following information was validated with the patient. Source: patient, old records reviewed Medical history: cancer, hypertension, renal disease, other Psychiatric history: anxiety - Past Surgical History Surgical History: appendectomy, hysterectomy - Social History Smoking Status: Current every day smoker Smokeless Tobacco Status: No Alcohol use: none Drug use: none - Family History Mother Race: Family Member Ethnicity: Non- Living Status: Age at : 77 Hx Family Endocrine Disorder: Yes (DM) Brother Race: Family Member Ethnicity: Non- Living Status: Cause of : Lung cancer Hx Family Cancer: Yes (Lung) Medications and Allergies Alprazolam [Xanax] 2 mg PO TID 11/24/15 [History] Morphine Sulfate SR (12 HR) [MS Contin] 30 mg PO Q8H #90 tablet.er 11/06/16 [Rx] Albuterol Sulfate [Proair Hfa] 1 puff IH QID PRN 11/23/16 [History] Guaifenesin [Mucinex] 600 mg PO BID PRN 11/23/16 [History] Loratadine [Claritin] 10 mg PO DAILY 11/23/16 [History] Metoprolol XL (24 HR) Succ [Toprol XL] 25 mg PO DAILY 11/23/16 [History] Oxycodone HCl [Roxicodone 30 MG Immed Release] 30 mg PO Q4-6H PRN 11/23/16 [ History] Promethazine Syrup [Phenergan Syrup] 12.5 - 25 mg PO Q8HR PRN 11/23/16 [History] hydroCHLOROthiazide [Hydrochlorothiazide] 12.5 mg PO DAILY 11/23/16 [History] Allergies hydrocodone Adverse Reaction (Verified 11/23/16 14:11) Nausea Hydromorphone [From Dilaudid] Adverse Reaction (Verified 11/23/16 14:11) Nausea All Systems Review: A 10-system review of systems was performed and is negative for pertinent findings except as documented above in the HPI. - Cardiovascular Cardiovascular: as per HPI Physical Examination Vital Signs, Last 4 Hours Temp Pulse Resp BP Pulse Ox 11/27/16 09:53 98.2 F 107 16 113/92 100 General: Conversant HEENT: Atraumatic, Normocephaly, Mucus Membranes Moist Neck: No JVD, Normal carotid pulses Cardiac: Reg Rate and Rhythm, Normal S1 and S2, No Murmur Lungs: Normal Breath Sounds, No Wheeze, Rales, Rhonchi Neuro: Alert and responsive, Other (flat affect, gives simpel verbal repsonses) Abdomen: Soft, Non-Tender Skin: No rashes noted on visualized skin Musculoskeletal: No Chest Wall Tenderness Extremities: No Clubbing, No Cyanosis, Normal Pulses, Other (+1-2 pitting edema bilateral LE) Results 11/27/16 06:32 11/27/16 06:32 Lab Results Laboratory Tests 09/26/16 10/25/16 11/23/16 14:15 10:40 16:10 Hgb 12.6 8.6 L Hct 40.8 28.7 L INR Potassium Creatinine Est GFR (Non-Af Amer) 11/24/16 11/25/16 11/27/16 02:07 04:16 06:32 Hgb 7.4 L 8.6 L Hct 27.4 L 31.6 L INR 1.6 Potassium Creatinine Est GFR (Non-Af Amer) 11/27/16 06:32 Hgb Hct INR Potassium 3.8 Creatinine 0.72 Est GFR (Non-Af Amer) > 60 ITS Impressions Chest X-Ray 11/23/16 16:03 IMPRESSION: Findings are consistent with progression of metastatic disease. Diffuse, bilateral interstitial opacities may reflect interstitial edema. D/ / 11/23/2016 17:12:19 Red Solis MD / devi Interpreting Provider: Red Solis MD Chest CT 11/23/16 19:01 IMPRESSION: 1. Innumerable bilateral metastatic lesions throughout the right and left lungs which have increased both in size and number when compared with previous exam compatible with disease progression. 2. Interval development of moderate-sized left pleural effusion and associated atelectasis. 3. Re- demonstration of skeletal metastasis similar to prior exam. D/ / Hardeep Dorsey MD / Hardeep Dorsey MD Interpreting Provider: Hardeep Dorsey MD Abdomen Ultrasound 11/24/16 08:45 IMPRESSION: Mild diffuse wall thickening the gallbladder and small amount of pericholecystic fluid. No gallstones. Gallbladder wall thickening is nonspecific and can be seen with acute and/or chronic inflammation, hepatitis, and heart failure D/ / Shannan Dawson Cha, MD / Shannan Dawson Cha, MD Interpreting Provider: Shannan Dawson Cha, MD Head CT 11/25/16 08:12 IMPRESSION: 1. Hypoattenuation is seen within the left frontal lobe, which may represent edema surrounding enhancing lesion noted on the prior MRI. 2. There is no evidence of mass effect or midline shift. 3. No acute intracranial abnormality. 4. Bilateral maxillary sinusitis. D/ / Tacos Rowley MD / Tacos Rowley MD Interpreting Provider: Tacos Rowley MD Active Medications Acetaminophen (Tylenol) 650 mg PO Q6HR PRN PRN Reason: Mild Pain (1-3) Stop: 05/25/17 18:26 Last Admin: 11/26/16 20:44 Dose: 650 mg Albuterol/Ipratropium (Duoneb) 3 ml IH [id number] PRN; Protocol PRN Reason: Shortness Of Breath/Wheezing Stop: 05/25/17 20:19 Last Admin: 11/25/16 08:29 Dose: 3 ml Alprazolam (Xanax) 2 mg PO TID PRN PRN Reason: Anxiety Stop: 05/25/17 21:01 Enoxaparin Sodium (Lovenox) 40 mg SQ 0600 EMILIANO PRN Reason: Protocol Stop: 05/29/17 06:01 Last Admin: 11/27/16 06:05 Dose: 40 mg Folic Acid (Folic Acid) 5 mg PO DAILY EMILIANO Stop: 05/27/17 09:01 Last Admin: 11/27/16 08:42 Dose: 5 mg Guaifenesin (Mucinex) 600 mg PO BID PRN PRN Reason: Congestion Stop: 05/25/17 18:31 Loratadine (Claritin) 10 mg PO DAILY [facility] PRN Reason: Protocol Stop: 05/26/17 09:01 Last Admin: 11/27/16 08:43 Dose: 10 mg Morphine Sulfate (Ms Contin) 30 mg PO Q12HR [facility] Stop: 05/28/17 18:01 Last Admin: 11/27/16 06:05 Dose: 30 mg Multi-Ingredient Mouthwash/Gargle (Magic Mouthwash) 10 ml PO TIDAC [facility] Stop: 05/28/17 21:16 Last Admin: 11/27/16 12:07 Dose: 10 ml Naloxone HCl (Narcan) 0.4 mg IVP Q2MIN PRN PRN Reason: Opioid Reversal Stop: 05/25/17 18:13 Naloxone HCl (Narcan) 0.4 mg IVP Q2MIN PRN PRN Reason: Opioid Reversal Stop: 05/25/17 18:26 Oxycodone HCl (Roxicodone) 30 mg PO Q3H PRN PRN Reason: Moderate to Severe Pain (4-10) Stop: 05/25/17 18:31 Pantoprazole Sodium (Protonix) 40 mg IVP DAILY@0630 [facility] Stop: 05/26/17 06:31 Last Admin: 11/27/16 06:05 Dose: 40 mg - EKG Interpretation EKG results cardiology: personally reviewed, normal ECG, sinus rhythm, other ( Tele reviewed with average heart rate past 24 hours, few episodes of sinus tachycardia in the 140s to 150s noted-- reviewed with Dr. Abner Barreto, no atrial flutter appreciated) Consult Discharge Plan - Plan Referrals: Harlan Epperson, [Primary Care Provider] - (Please make sure to call your family physician for hospital follow up)
--- NOTE | 2016-11-27 16:09 | Internal Med Progress Note ---
Date of Encounter: 11/27/16 Time of Encounter: 11:20 - Assessment and plan (1) Tachycardia Current Visit: Yes Status: Acute Assessment and plan: Patient was noted to have an episode of SVT/atrial flutter yesterday and cardiology was consulted. After reviewing telemetry strips and EKGs, cardiology recommends supportive care as it was most likely sinus tachycardia. Patient continues to have heart rate 100-110. This is likely related to underlying metastatic cancer, pain and anxiety. She is also noted to have chronic hypotension which limits the ability to give rate control medications. Continue telemetry monitoring. (2) Bilateral lower extremity edema Current Visit: Yes Status: Chronic Assessment and plan: Could be related to anemia, hypoalbuminemia and underlying renal cell cancer. Lasix is currently held due to hypotension. Supportive care and lower extremity elevation. (3) Anemia Current Visit: Yes Status: Chronic Assessment and plan: Iron and folate acid deficiency. Continue supplements. Qualifiers: Anemia type: other cause Other causes of anemia: chronic disease, other Qualified Code(s): D63.8 - Anemia in other chronic diseases classified elsewhere (4) Acute respiratory failure with hypoxia Current Visit: Yes Status: Acute Assessment and plan: Continue supplemental oxygen. Likely related to lung metastases from underlying renal cell cancer. (5) Hypotension Current Visit: Yes Status: Chronic Assessment and plan: Random serum cortisol level noted to be normal. Blood pressure currently stable. Avoid antihypertensives and monitor closely. We will consider Midodrin as needed. Qualifiers: Hypotension type: other hypotension type Qualified Code(s): I95.89 - Other hypotension (6) Urinary tract infection, acute Current Visit: Yes Status: Acute Assessment and plan: Blood and urine cultures show no significant growth. We will hold antibiotics at this time. (7) Metastatic renal cell carcinoma Current Visit: Yes Status: Chronic Assessment and plan: Follows with oncology as outpatient. Palliative care team recommendations appreciated. CODE STATUS has been changed to DNR/DNI today. Awaiting family meeting by palliative care team with patient's sister, who is also her medical power of patent prosecution attorney. Pending decision regarding discharge home with home health services versus home hospice. Qualifiers: Laterality: unspecified laterality Qualified Code(s): C64.9 - Malignant neoplasm of unspecified kidney, except renal pelvis - Subjective Interval history: Reports feeling well. No dizziness, chest pain, shortness of breath or palpitations. - Constitutional Vitals: Temp Pulse Resp BP Pulse Ox 98.2 F 107 16 113/92 100 11/27/16 09:53 11/27/16 09:53 11/27/16 09:53 11/27/16 09:53 11/27/16 09:53 General appearance: Present: cachectic, A&O X 3, answers questions appropriately - Respiratory Respiratory exam: Present: CTAB. Absent: accessory muscle use, rales, rhonchi, wheezes - Cardiovascular Cardiovascular exam: Present: RRR, +S1, +S2, tachycardia. Absent: diastolic murmur, gallop, rubs, systolic murmur - GI/Abdominal GI/Abdominal exam: Present: normal bowel sounds, soft, no peritoneal signs. Absent: distended, tenderness - Extremities Exam Extremities exam: Present: full ROM, warm, radial pulses palpable and symetrical. Absent: calf tenderness, cyanotic, pedal edema Internal Medicine: Result - Labs CBC & Chem 7: 11/27/16 06:32 11/27/16 06:32 Labs: Short CBC 11/27/16 Range/Units 06:32 WBC 11.6 H (4.3-11.1) K/mcL Hgb 8.6 L (11.5-15.4) g/dL Hct 31.6 L (35.3-44.9) % Plt Count 277 (140-400) K/mcL Neutrophils # 9.7 H (1.6-8.9) K/mcL BMP 11/27/16 06:32 Sodium 135 L Potassium 3.8 Chloride 99 Carbon Dioxide 26 BUN 12 Creatinine 0.72 Glucose 110 H Calcium 8.9 - ABG Interpretation ABG results: ABG ABG pH 7.53 pH Units (7.32-7.45) H 11/25/16 15:55 ABG pCO2 34 mmHg (35-45) L 11/25/16 15:55 ABG pO2 65 mmHg (85-104) L 11/25/16 15:55 ABG O2 Saturation 95 % (95-98) 11/25/16 15:55 PT/INR, D-dimer PT 17.6 Seconds (9.4-12.1) H 11/24/16 02:07 D-Dimer 5839 ng/mLFEU (0-500) H 06/09/17 19:41 Consult Discharge Plan - Plan Referrals: Harlan Epperson, [Primary Care Provider] - (Please make sure to call your family physician for hospital follow up)
[2016-11-28 04:53] LABS: Eosinophils % 1.4 %
[2016-11-28 04:54] LABS: Basophils # 0.1 K/mcL (0.0-0.2); Basophils % 0.4 %; Eosinophils # 0.2 K/mcL (0.0-0.6); Hematocrit 28.3 % (35.3-44.9); Hemoglobin 7.9 g/dL (11.5-15.4); Immature Granulocytes % 1.1 % (0-4); Lymphocytes # 0.7 K/mcL (0.6-4.6); Lymphocytes % 4.7 %; Mean Corpuscular HGB Conc 27.9 g/dL (31.6-35.5); Mean Corpuscular Hemoglobin 19.4 pg (28.0-33.3); Mean Corpuscular Volume 69.4 fL (83.0-100.0); Mean Platelet Volume 9.2 fL (9.4-12.4); Monocytes # 1.8 K/mcL (0.0-1.3); Monocytes % 12.8 %; Neutrophils # 11.4 K/mcL (1.6-8.9); Nucleated Red Blood Cells 0.6 /100 WBC (0); Platelet Count 361 K/mcL (140-400); Red Blood Count 4.08 M/mcL (3.82-4.97); Red Cell Distribution Width 26.6 % (11.5-14.5); Segmented Neutrophils % 79.6 %
[2016-11-28 04:58] LABS: BUN/Creatinine Ratio 17 (6-26); Blood Urea Nitrogen 13 mg/dL (7-20); Calcium 8.9 mg/dL (8.6-10.8); Carbon Dioxide 26 mEq/L (19-29); Chloride 99 mEq/L (98-109); Glucose 100 mg/dL (70-99); Osmolality,Calculated 278 (280-300); Potassium 3.8 mEq/L (3.5-4.5); Sodium 134 mEq/L (136-145); eGFR For African Americans > 60 (> 60); eGFR For Non-African Americans > 60 (> 60)
[2016-11-28 05:24] LABS: Hypochromasia Present (Not Present); Macrocytosis Present (Not Present); Polychromasia 1+ (Not Present); Target Cells 1+ (Not Present)
[2016-11-28 05:25] LABS: Anisocytosis 2+ (Not Present); Microcytosis Present (Not Present); Platelet Estimate Normal (Normal)
[2016-11-28] MEDS: Pantoprazole 40 MG VIAL IVP SCH (06:20)
[2016-11-28] MEDS: *HR* Enoxaparin 40 MG/0.4 ML SYRINGE SQ SCH (06:20)
--- NOTE | 2016-11-28 09:04 | Palliative Progress Note ---
Date of Encounter: 11/28/16 Time of Encounter: 08:30 - Assessment and plan (1) Generalized pain Current Visit: Yes Status: Acute Assessment and plan: The patient reports the pain is better. Continue current regimen. (2) SOB (shortness of breath) Current Visit: Yes Status: Acute Assessment and plan: The patient is much more talkative today and much more pleasant. The patient states her breathing is better. Continue current regimen., Plan per hospitalist team (3) Cancer associated pain Current Visit: Yes Status: Chronic Assessment and plan: The pain appears to be better, we will current regimen. (4) Goals of care, counseling/discussion Current Visit: Yes Status: Acute Assessment and plan: Met with patient, and her sister who is also her medical power of staff attorney. Patient's sister is here at this time, they are discussing further goals of care. The patient is DNR CCA DNI and is considering whether or not she wishes to continue with aggressive care or not. Patient is certainly hospice eligible if she decides that she wishes to have it. Have discussed with her sister and with the patient at length about her options. The patient has thus far not ruled out continuing aggressive therapy with oncology, however she has refused GI workup for her anemia. I have informed her she and her sister, that it does not make a lot of sense to continue to be aggressive with her cancer therapy when the chemotherapy has failed and not pursue an anemia workup. I gave her my opinion that we should be all in, or all out. I do not feel that it is unreasonable for her to want to continue to get chemotherapy, however if she is not getting be worked up for anemia [place] seem reasonable to continue the chemotherapy either. I have discussed with the hospitalist team, and the only reason the patient is still in the hospital at this time is to watch for anemia as she is deciding on a GI workup. She consents to GI workup this will get done and then we will see about discharging her home, if she does not wish to make a decision on GI workup today she will be discharged home to follow-up as an outpatient. Reminded her sister who is her medical power of staff attorney the hospice referral number, if she should wish to decide on hospice at home as well. At this time she is not making a decision on any of it. I have informed the hospitalist team. - Time Spent With Patient Total time spent is greater than 50% in coordination of care (as documented) at patient's floor/unit and/or counseling patient: - Subjective Interval history: The patient is feeling overall somewhat better. However she is not very talkative today even with family. She has no specific complaint of. Her pain is under decent control and her breathing is okay... - Constitutional Vitals: Abnormal lab results WBC 14.3 K/mcL (4.3-11.1) H 11/28/16 04:19 Hgb 7.9 g/dL (11.5-15.4) L 11/28/16 04:19 Hct 28.3 % (35.3-44.9) L 11/28/16 04:19 MCV 69.4 fL (83.0-100.0) L 11/28/16 04:19 MCH 19.4 pg (28.0-33.3) L 11/28/16 04:19 MCHC 27.9 g/dL (31.6-35.5) L 11/28/16 04:19 RDW 26.6 % (11.5-14.5) H 11/28/16 04:19 MPV 9.2 fL (9.4-12.4) L 11/28/16 04:19 Neutrophils # 11.4 K/mcL (1.6-8.9) H 11/28/16 04:19 Monocytes # 1.8 K/mcL (0.0-1.3) H 11/28/16 04:19 Nucleated RBCs/100 WBC 0.6 /100 WBC (0) H 11/28/16 04:19 Polychromasia 1+ (Not Present) A 11/28/16 04:19 Hypochromasia Present (Not Present) A 11/28/16 04:19 Poikilocytosis 1+ (Not Present) A 11/26/16 04:09 Anisocytosis 2+ (Not Present) A 11/28/16 04:19 Microcytosis Present (Not Present) A 11/28/16 04:19 Macrocytosis Present (Not Present) A 11/28/16 04:19 Target Cells 1+ (Not Present) A 11/28/16 04:19 Leonardo Cells 1+ (Not Present) A 11/27/16 06:32 PT 17.6 Seconds (9.4-12.1) H 11/24/16 02:07 D-Dimer 5839 ng/mLFEU (0-500) H 11/23/16 19:41 ABG pH 7.53 pH Units (7.32-7.45) H 11/25/16 15:55 ABG pCO2 34 mmHg (35-45) L 11/25/16 15:55 ABG pO2 65 mmHg (85-104) L 11/25/16 15:55 ABG HCO3 28.4 mEQ/L (21-27) H 11/25/16 15:55 ABG Total CO2 29.4 mEq/L (20-26) H 11/25/16 15:55 ABG Base Excess 5.4 mEq/L (-2.0 to 3.0) H 11/25/16 15:55 Sodium 134 mEq/L (136-145) L 11/28/16 04:19 Glucose 100 mg/dL (70-99) H 11/28/16 04:19 POC Glucose 184 (58-89) H 11/25/16 10:55 Calculated Osmolality 278 (280-300) L 11/28/16 04:19 Magnesium 1.3 mg/dL (1.6-2.6) L 11/24/16 02:07 Iron 12 mcg/dL (50-170) L 11/25/16 04:16 % Saturation 10 % (15-50) L 11/25/16 04:16 Transferrin 84 mg/dL (180-382) L 11/25/16 04:16 Ferritin 384 ng/ml (5-204) H 11/25/16 04:16 Total Bilirubin 2.9 mg/dL (0.2-1.2) H 11/24/16 02:07 Direct Bilirubin 2.3 mg/dL (0.0-0.5) H 11/24/16 02:07 Alkaline Phosphatase 212 Units/L (38-126) H 11/24/16 02:07 B-Natriuretic Peptide 1057 pg/mL (0-100) H 11/24/16 02:07 Serum Total Protein 5.8 g/dL (6.0-8.3) L 11/24/16 02:07 Albumin 1.5 g/dL (3.5-5.0) L 11/24/16 02:07 Globulin 4.3 g/dL (2.4-3.5) H 11/24/16 02:07 Albumin/Globulin Ratio 0.3 (1.1-2.2) L 11/24/16 02:07 HDL Cholesterol 9 mg/dL (40-59) L 11/24/16 02:07 Cholesterol/HDL Ratio 11.7 (0-4.9) H 11/24/16 02:07 Folate 3.0 ng/mL (7.0-31.4) L 11/25/16 04:16 Urine Color [place] (Yellow) A 11/25/16 20:54 Urine Clarity Cloudy (Clear) A 11/25/16 20:54 Urine Protein 30 mg/dL (Neg-Trace) H 11/25/16 20:54 Urine Ketones Trace mg/dL (Negative) H 11/25/16 20:54 Urine Nitrite Positive (Negative) A 11/25/16 20:54 Urine Bilirubin Moderate (Negative) H 11/25/16 20:54 Urine Urobilinogen 4.0 mg/dL (Normal) H 11/25/16 20:54 Ur Leukocyte Esterase Small (Negative) H 11/25/16 20:54 Ur Squamous Epith Cells Many per lpf (None-Few) H 11/25/16 20:54 Ur Culture Indicated? YES (NO) A 11/25/16 20:54 General appearance: Present: no acute distress - Head Head exam: Present: atraumatic, normal inspection - Respiratory Respiratory exam: Present: decreased breath sounds - Cardiovascular Cardiovascular exam: Present: RRR, tachycardia - GI/Abdominal GI/Abdominal exam: Present: normal bowel sounds, soft. Absent: tenderness - Extremities Exam Extremities exam: Present: pedal edema - Neurological Exam Neurological exam: Present: alert - Psychiatric Psychiatric exam: Absent: agitated, anxious - Skin Skin exam: Present: dry, warm Palliative Quality Palliative Quality: Screen for Code Status: Yes, Screen for Goals of Care: Yes, Screen for Pain: Yes, If Pain Regimen Started, Initiate Bowel Regimen: Yes, Screen for Nausea/Vomitting: Yes Code Status: 11/23/16 18:12 Resuscitation Status: Active [RES] Routine Comment: Resuscitation Status: [id number] - Labs CBC & Chem 7: 11/28/16 04:19 11/28/16 04:19 Labs: Laboratory Results - last 24 hr 11/27/16 11/28/16 11/28/16 10:39 04:19 04:19 WBC 14.3 H RBC 4.08 Hgb 7.9 L Hct 28.3 L MCV 69.4 L MCH 19.4 L MCHC 27.9 L RDW 26.6 H Plt Count 361 MPV 9.2 L Immature Gran % 1.1 Seg Neutrophils % 79.6 Lymphocytes % 4.7 Monocytes % 12.8 Eosinophils % 1.4 Basophils % 0.4 Neutrophils # 11.4 H Lymphocytes # 0.7 Monocytes # 1.8 H Eosinophils # 0.2 Basophils # 0.1 Nucleated RBCs/100 WBC 0.6 H Platelet Estimate Normal Polychromasia 1+ A Hypochromasia Present A Anisocytosis 2+ A Microcytosis Present A Macrocytosis Present A Target Cells 1+ A Sodium 134 L Potassium 3.8 Chloride 99 Carbon Dioxide 26 BUN 13 Creatinine 0.76 Est GFR ( Amer) > 60 Est GFR (Non-Af Amer) > 60 BUN/Creatinine Ratio 17 Glucose 100 H Calculated Osmolality 278 L Calcium 8.9 Random Cortisol 21.0 - ABG Interpretation ABG results: ABG ABG pH 7.53 pH Units (7.32-7.45) H 11/25/16 15:55 ABG pCO2 34 mmHg (35-45) L 11/25/16 15:55 ABG pO2 65 mmHg (85-104) L 11/25/16 15:55 ABG O2 Saturation 95 % (95-98) 11/25/16 15:55 PT/INR, D-dimer PT 17.6 Seconds (9.4-12.1) H 11/24/16 02:07 D-Dimer 5839 ng/mLFEU (0-500) H 11/23/16 19:41 Consult Discharge Plan - Plan Referrals: Harlan Epperson DO [Primary Care Provider] - (Please make sure to call your family physician for hospital follow up)
[2016-11-28] MEDS: Folic Acid 1 MG TABLET PO SCH (09:23)
[2016-11-28] MEDS: Magic Mouthwash 10 ML UD Cup PO SCH ×2 (09:23→11:22)
[2016-11-28] MEDS: Loratadine 10 MG TABLET PO SCH (09:25)
[2016-11-28 11:13] VITALS: BP 96/61
--- NOTE | 2016-11-28 15:26 | Discharge Summary ---
Date of Encounter: 11/28/16 Time of Encounter: 13:30 - Discharge Diagnosis (1) Tachycardia Priority: Primary Status: Acute (2) Bilateral lower extremity edema Priority: Primary Status: Chronic (3) Anemia Priority: Primary Status: Chronic Qualifiers: Anemia type: other cause Other causes of anemia: chronic disease, other Qualified Code(s): D63.8 - Anemia in other chronic diseases classified elsewhere (4) Acute respiratory failure with hypoxia Priority: Primary Status: Acute (5) Hypotension Priority: Primary Status: Chronic Qualifiers: Hypotension type: other hypotension type Qualified Code(s): I95.89 - Other hypotension (6) Metastatic renal cell carcinoma Priority: Secondary Status: Chronic Qualifiers: Laterality: unspecified laterality Qualified Code(s): C64.9 - Malignant neoplasm of unspecified kidney, except renal pelvis - Discharge Medications Prescriptions: Folic Acid 5 mg PO DAILY #30 tablet Home Medications: Alprazolam [Xanax] 2 mg PO TID 11/24/15 [History] Albuterol Sulfate [Proair Hfa] 1 puff IH QID PRN 11/23/16 [History] Guaifenesin [Mucinex] 600 mg PO BID PRN 11/23/16 [History] Loratadine [Claritin] 10 mg PO DAILY 11/23/16 [History] Oxycodone HCl [Roxicodone 30 MG Immed Release] 30 mg PO Q4-6H PRN 11/23/16 [ History] Promethazine Syrup [Phenergan Syrup] 12.5 - 25 mg PO Q8HR PRN 11/23/16 [History] Folic Acid 5 mg PO DAILY #30 tablet 11/28/16 [Rx] Morphine Sulfate SR (12 HR) [MS Contin] 30 mg PO Q12H #90 tablet.er 11/28/16 [Rx ] Allergies/Adverse Reactions: Allergies hydrocodone Adverse Reaction (Verified 11/23/16 14:11) Nausea Hydromorphone [From Dilaudid] Adverse Reaction (Verified 11/23/16 14:11) Nausea Procedures/tests Complete & Pending: Procedures Performed prior 72 hours Category Date Time Status ECG 12 lead ECG [ECG] Routine Y 11/26/16 13:31 Completed Date of admission: 11/26/16 17:14 Primary care physician: Harlan Epperson DO Discharging clinician: Shikha Ward Anticipated date of discharge: 11/28/16 - Patient Status Disposition: Home Health Service Condition: Critical Functional capacity at discharge: wheelchair bound Overall status at discharge: patient is not back to baseline - Discharge Instructions Instructions: Urinary Tract Infection in Women (GEN) Follow Up With: Harlan Epperson, [Primary Care Provider] - (Please make sure to call your family physician for hospital follow up) - Diet and Activity Activity: as per physical therapy, wear oxygen at all times Diet: advance to your usual diet Hospital course: Ms. Gavin is a 56 year old female with history of metastatic renal cell carcinoma who was initially admitted with worsening pedal edema. She was noted to have acute on chronic anemia with iron and folic acid deficiency, supplements were started. GI was consulted for possible EGD and colonoscopy, for which patient did not consent. Patient was noted to have worsening functional status due to underlying metastatic cancer. Imaging during this admission showed new lung metastasis causing acute respiratory failure and patient continued to require supplemental oxygen. Oncology was consulted and recommended palliative care evaluation, as patient was noted to be noncompliant to chemotherapy and her cancer is not amenable to treatment at this time. Palliative care team was consulted and after multiple discussions with patient's power of research attorney, her sister Tiesha, it has been decided that patient may benefit from hospice care. Patient and family would like to be discharged home at this time with home health services with the option of hospice/palliative care explained to them in detail. Patient was noted to have sinus tachycardia along with borderline low blood pressure throughout this admission. She was initially treated with Lasix for pedal edema, which has been held due to hypotension. Tachycardia could not be treated with rate control medications due to hypotension. Cardiology was consulted and recommended conservative management and low-dose metoprolol if tolerated. I have explained to patient's sister that she is not a very stable patient to be discharged home, however given her functional status and underlying metastatic cancer, aggressive medical management may be futile and patient is currently confused with poor memory, unable to make her own decisions. Her sister verbalized understanding and she would like for the patient to be discharged home at this time with outpatient follow-up. - Time Spent with Patient Total time spent providing and/or coordinating discharge services: Greater than 30 minutes (50 min) - Constitutional Vitals: Temp Pulse Resp BP Pulse Ox 97.8 F 103 16 96/61 93 11/28/16 11:12 11/28/16 11:12 11/28/16 11:12 11/28/16 11:12 11/28/16 14:26 General appearance: Present: cachectic, A&O X 1 (poor memory, poor cognition today), answers questions appropriately - Cardiovascular Cardiovascular exam: Present: RRR, +S1, +S2, tachycardia. Absent: diastolic murmur, gallop, rubs, systolic murmur
--- NOTE | 2016-11-28 15:29 | Physician Discharge Referral ---
Home Health/Hosp Referral Info Transfer to: Home Health ([facility]/ OP Palliative care) Attending Provider: Shikha Ward Provider in Charge Post Discharge: PCP - Diagnosis (1) Tachycardia Priority: Primary Status: Acute (2) Bilateral lower extremity edema Priority: Primary Status: Chronic (3) Anemia Priority: Primary Status: Chronic (4) Acute respiratory failure with hypoxia Priority: Primary Status: Acute (5) Hypotension Priority: Primary Status: Chronic (6) Urinary tract infection, acute Priority: Primary Status: Ruled-out (7) Metastatic renal cell carcinoma Priority: Secondary Status: Chronic - Respiratory Orders Oxygen / L per min (2L/min via [place]) Smoking Cessation: Smoking cessation has been advised. For more information, call the [place] Tobacco Quit Line at 0-693-CBFN-NOW. - Diet/Nutrition Diet/Nutrition Orders: Regular - Activity Activity Orders: Ambulate - Services Needed Following services are medically necessary services: Nursing, Home Health Aide, Physical Therapy, Occupational Therapy - Transfer Medications Prescriptions: Folic Acid 5 mg PO DAILY #30 tablet Home Medications: Alprazolam [Xanax] 2 mg PO TID 11/24/15 [History] Albuterol Sulfate [Proair Hfa] 1 puff IH QID PRN 11/23/16 [History] Guaifenesin [Mucinex] 600 mg PO BID PRN 11/23/16 [History] Loratadine [Claritin] 10 mg PO DAILY 11/23/16 [History] Oxycodone HCl [Roxicodone 30 MG Immed Release] 30 mg PO Q4-6H PRN 11/23/16 [ History] Promethazine Syrup [Phenergan Syrup] 12.5 - 25 mg PO Q8HR PRN 11/23/16 [History] Folic Acid 5 mg PO DAILY #30 tablet 11/28/16 [Rx] Morphine Sulfate SR (12 HR) [MS Contin] 30 mg PO Q12H #90 tablet.er 11/28/16 [Rx ] Allergies/Adverse Reactions: Allergies hydrocodone Adverse Reaction (Verified 11/23/16 14:11) Nausea Hydromorphone [From Dilaudid] Adverse Reaction (Verified 11/23/16 14:11) Nausea Certification: Further, I certify that my clinical findings support that this patient is homebound (i.e. absences from home require considerable and taxing effort and are for medical reasons or episcopal services or infrequently or short duration when for other reasons) because: Homebound Reason: Patient requires assistance of a person or device to safely leave home, Leaving home requires considerable and taxing effort due to condition, Severity of cardiac or pulmonary status limits activity tolerance Attestation: My signature below is to certify that this patient is under my care and that I, or nurse practitioner, or a physician's triage assistant working with me, has a face-to -face encounter with this patient.
== END 2016-11-28 18:11 | disposition home health service (06) | DRG 133 ==
LOC: EMEROO 15:26 → 2ANU 15:26 → SUATTDRO 11-26 17:14
PROVIDERS: ADMIT Internal Medicine; ATTEND Internal Medicine